=== PATIENT | female | born 1940 | race Caucasian/White ===

== ENCOUNTER → 2023-04-04 11:47 | Outpatient (REF) | payer MEDICARE, BC, SELFPAY ==
[2023-04-04 12:19] LABS: % Basophils 0.7 % (0-2); % Eosinophils 2.1 % (0-6); % Immature Granulocytes 0.1 % (0-0.5); % Lymphocytes 22.6 % (20.5-51.1); % Monocytes 9.8 % (1.7-9.3); % Neutrophils 64.7 % (42.2-75.2); Absolute Basophils 0.1 10^3/uL (0-0.2); Absolute Eosinophils 0.1 10^3/uL (0-0.7); Absolute Lymphocytes 1.5 10^3/uL (1.2-3.4); Absolute Monocytes 0.7 10^3/uL (0.1-0.6); Absolute Neutrophils 4.4 10^3/uL (1.4-6.5); Hematocrit 38.1 % (37.0-47.0); Hemoglobin 11.5 g/dL (12.0-16.0); Mean Corp Hgb Conc. 30.2 g/dL (33.0-37.0); Mean Corpuscular Hgb 25.7 pg (27.0-31.0); Mean Corpuscular Volume 85.2 fL (81.0-99.0); Mean Platelet Volume 11.9 fL (7.4-10.4); Nucleated Red Blood Cells % 0 %; Platelet Count 255 10^3/uL (130-400); Red Blood Cell Count 4.47 10^6/uL (4.20-5.40); Red Cell Dist. Width 18.6 % (11.5-14.5); White Blood Cell Count 6.8 10^3/uL (4.8-10.8)
[2023-04-04 12:30] LABS: ALT (SGPT) 18 U/L (0-35); AST (SGOT) 28 U/L (14-36); Alkaline Phosphatase 75 U/L (38-126); Blood Urea Nitrogen 12 mg/dl (7-17); Calcium 8.5 mg/dl (8.4-10.2); Carbon Dioxide 30 mmol/L (22-30); Chloride 100 mmol/L (98-107); Glucose 87 mg/dl (70-99); HDL Cholesterol 42 mg/dl; LDL Cholesterol, Calculated 48 mg/dl; Magnesium 2.2 mg/dl (1.6-2.3); Potassium 3.9 mmol/L (3.5-5.1); Sodium 137 mmol/L (135-145); Total Bilirubin 0.6 mg/dl (0.2-1.3); Total Cholesterol 104 mg/dl (50-199); Total Protein 5.9 g/dl (6.3-8.2); Triglyceride 74 mg/dl (10-149); Very Low Density Lipoprotein 14 mg/dl (0-30); eGFR > 60.00
[2023-04-04 12:43] LABS: Vitamin D, 25-OH*** 42.2 ng/mL (30-80)
[2023-04-04 12:57] LABS: TSH 6.84 uIU/ml (0.47-4.68)
[2023-04-04 14:17] LABS: Glycohemoglobin (HgbA1c) 6.5 % (4.0-5.6)
== END ==
LOC: OLABN 11:47
PROVIDERS: ATTENDING PHYSICIAN Student in an Organized Health Care Education/Training Program
DX: F32.9 Major depressive disorder, single episode, unspecified (principal); J44.9 Chronic obstructive pulmonary disease, unspecified; I50.32 Chronic diastolic (congestive) heart failure; E03.9 Hypothyroidism, unspecified; E78.5 Hyperlipidemia, unspecified; E11.10 Type 2 diabetes mellitus with ketoacidosis without coma; R73.09 Other abnormal glucose; E55.9 Vitamin D deficiency, unspecified
CPT/HCPCS: 36415; 80053; 80061; 82306; 83036; 83735; 84443; 85025

== ENCOUNTER 2023-05-05 15:37 | Inpatient (IN) | payer MEDICARE, BC, SELFPAY ==
[2023-05-05] VITALS (9 sets, daily range): BP systolic 95–129; BP diastolic 63–107; PULSE 94–96; BMI 23.6
[2023-05-05 12:14] LABS: % Basophils 0.7 % (0-2); % Eosinophils 0.5 % (0-6); % Immature Granulocytes 0.4 % (0-0.5); % Lymphocytes 7.9 % (20.5-51.1); % Monocytes 12.5 % (1.7-9.3); Absolute Basophils 0.1 10^3/uL (0-0.2); Absolute Lymphocytes 0.7 10^3/uL (1.2-3.4); Absolute Monocytes 1.1 10^3/uL (0.1-0.6); Absolute Neutrophils 6.6 10^3/uL (1.4-6.5); Hematocrit 39.1 % (37.0-47.0); Hemoglobin 12.3 g/dL (12.0-16.0); Mean Corp Hgb Conc. 31.5 g/dL (33.0-37.0); Mean Corpuscular Hgb 25.6 pg (27.0-31.0); Mean Corpuscular Volume 81.5 fL (81.0-99.0); Mean Platelet Volume 11.3 fL (7.4-10.4); Nucleated Red Blood Cells % 0 %; Platelet Count 229 10^3/uL (130-400); Red Cell Dist. Width 17.5 % (11.5-14.5); White Blood Cell Count 8.5 10^3/uL (4.8-10.8)
[2023-05-05 12:25] LABS: INR 1.68; PT 19.9 Sec (11.4-14.6)
[2023-05-05 12:26] LABS: COVID-19 Antigen Negative (Negative)
[2023-05-05 12:27] LABS: ALT (SGPT) 13 U/L (0-35); AST (SGOT) 19 U/L (14-36); Albumin 3.6 g/dl (3.5-5.0); Alkaline Phosphatase 66 U/L (38-126); Blood Urea Nitrogen 12 mg/dl (7-17); Calcium 8.9 mg/dl (8.4-10.2); Carbon Dioxide 28 mmol/L (22-30); Chloride 99 mmol/L (98-107); Estimated Creatinine Clearance 57 ml/min; Glucose 106 mg/dl (70-99); Potassium 3.7 mmol/L (3.5-5.1); Sodium 133 mmol/L (135-145); Total Bilirubin 0.9 mg/dl (0.2-1.3); Total Protein 6.4 g/dl (6.3-8.2); eGFR > 60.00
[2023-05-05 12:34] LABS: NT-proBNP 5580 pg/ml
--- NOTE | 2023-05-05 14:21 | ED.GENMED ---
History of Present Illness
General
Chief Complaint: Breathing Problem
Source: patient, records and ambulance crew
Exam Limitations: none
Time Seen by Provider: 05/05/23 12:36
Nursing documentation reviewed up to this point in time: agreed with
Travel History
Have you had any contact with someone who has COVID-19?: No
Do you have any symptoms of coronavirus? Fever > 100 degrees, chills, cough, shortness of breath, sore throat, loss of taste or smell, muscle aches, or headache?: No
History of Present Illness
History of Present Illness:
83-year-old female with a past medical history of COPD, chronic respiratory failure on 2 L oxygen at nighttime only, CHF, hypertension, atrial fibrillation who presents to the emergency department from [facility] for evaluation of shortness of
breath. Patient reports that she has had gradually worsening shortness of breath over the past few days. Last night she says she woke up in the middle of the night very winded and today particularly the afternoon shortness of breath has been
significantly worse. She says she has had increasing orthopnea. She says she has had a nagging cough over the past 24 hours. Denies chest pain. She has not noticed any significant swelling in her legs. She denies any fevers or chills. She
denies any GI issues. She says she has been compliant with all meds including her Lasix (takes 40 mg daily). She normally sees Dr. Cody for cardiology. Per EMS on their arrival she was hypoxic on room air requiring 4 L nasal cannula.
Past History
Past History
ED Past Medical History: Asthma, COPD, GERD, HTN, Hypercholesterolemia, NIDDM, Other (osteoarthritis, migraines, Sjogren's, peripheral polyneuropathy, chronic pain, Diverticulitis, IBS, elevated LFT's, Hyperthyriodism) and Other ( peripheral
neuropathy, IBS, recurrent SBO, status post MVP, PNA)
ED Past Surgical History: Appendectomy, Bowel resection (Colon resection), Gynecological (Total hysterectomy), Orthopedic (b/l TKR, left shoulder, back stimulator, Fusion of back, ), Tonsilectomy, Urological (Bladder sling) and Other (recurrent
bowel obstructions after bowel resection for multiple diverticula); Negative Cholecystectomy
Social History
Tobacco: Non-smoker
Alcohol: None
Drug: None
Personal:
Living: alone
Employment: Retired
Family History
Family History: Diabetes
Review of Systems
Review of Systems
All Other Systems: ROS reviewed and negative except as documented in HPI and ROS
Constitutional: Reports fatigue; Denies fever or chills
EENT: Denies sore throat or runny nose
Respiratory: Reports cough and trouble breathing
Cardiac: Reports other (Orthopnea, PND); Denies chest pain or palpitations
ABD/GI: Denies abdominal pain, nausea or vomiting
: Denies flank pain
Musculoskeletal: Denies edema, neck pain or back pain
Neurological: Denies headache, weakness or numbness
Phy Exam
Physical Exam
Physical Exam:
General: Awake, alert, oriented x3; no acute distress
Head: Normocephalic, atraumatic
Eyes: Conjunctiva normal, sclera anicteric
Throat: Airway intact, handling secretions
Neck: Trachea midline, slight JVD noted
Lungs: Patient is hypoxic currently on 4 L nasal cannula saturating 95%; mild tachypnea with a respiratory of 20-22; she has very faint rales at the lung bases bilaterally no significant wheezing; occasional coughing
Heart: Regular rate and rhythm, no murmurs, gallops, or rubs appreciated
Abd: Soft, non distended, nontender
Neuro: No gross deficits
Extremities: Trace edema around the ankles bilaterally; extremities warm and well-perfused
Scores
Heart Failure Risk
Heart Failure Risk Score: Yes
History of Stroke or TIA: No
History of intubation for respiratory distress: No
Heart rate on ED arrival >/= 110: No
SaO2 <90% on arrival on room air: Yes
HR >/=110 during 3min walk test (or too ill to perform test): Yes
ECG has acute ischemic changes: No
Urea >/=12mmol/L (BUN 33.6mg/dL): No
Serum CO2>/=35mmol/L: No
Troponin I or T elevated to [place] Level (0.4mg/dL): No
NT-proBNP >/=5,000ng/L (5,000pg/ml): Yes
HF Risk Score: 4
Admission Status: HIGH RISK 26.1% Consider SNF treatment or admission to hospital
Heart Score for Chest Pain Patients
STEMI patient?: Not applicable
Withdrawal Assessment of Alcohol
Withdrawal Assessment Completed?: Not applicable
Course
Orders/Labs/Results
Orders:
Orders
05/05/23 11:52
Electrocardiogram (*1) Urgent
Reason for Study: Chest Pain
EKG- Treatment ONCE
Pulse Ox/spot Check [RESP] Urgent
Quantity: 1
Special Instructions: ON ROOM AIR
05/05/23 12:06
COVID-19 Antigen Urgent
Source: Nasal Swab
Complete Blood Count/With Diff Urgent
Influenza A+B Rapid Molecular Urgent
SCARLETT Source: Nasal Swab
Specimen Description:
05/05/23 12:07
Comprehensive Metabolic Panel Urgent
NT-proBNP Urgent
Prothrombin Time Urgent
05/05/23 12:38
CR Chest - 2 Views Urgent
Comment:
Reason For Exam: sob
05/05/23 14:10
Furosemide [Lasix] 80 mg IV NOW STA
Abnormal Lab Results
05/05/23 05/05/23
12:06 12:07
MCH 25.6 L pg
(27.0-31.0)
MCHC 31.5 L g/dL
(33.0-37.0)
RDW 17.5 H %
(11.5-14.5)
MPV 11.3 H fL
(7.4-10.4)
Absolute Neuts (auto) 6.6 H 10^3/uL
(1.4-6.5)
Absolute Lymphs (auto) 0.7 L 10^3/uL
(1.2-3.4)
Absolute Monos (auto) 1.1 H 10^3/uL
(0.1-0.6)
Neutrophils % 78.0 H %
(42.2-75.2)
Lymphocytes % 7.9 L %
(20.5-51.1)
Monocytes % 12.5 H %
(1.7-9.3)
PT 19.9 H Sec
(11.4-14.6)
Sodium 133 L mmol/L
(135-145)
Creatinine 0.5 L mg/dL
(0.6-1.0)
Glucose 106 H mg/dl
(70-99)
05/05/23 12:06
05/05/23 12:07
Vital Signs
Initial and Last Documented VS:
Initial Vital Signs
Temp Pulse Resp BP Pulse Ox
36.7 C 103 20 117/73 90
05/05/23 11:48 05/05/23 11:48 05/05/23 11:48 05/05/23 11:48 05/05/23 11:48
Last Documented Vital Signs
Temp Pulse Resp BP Pulse Ox
36.7 C 103 20 117/73 90
05/05/23 11:48 05/05/23 11:48 05/05/23 11:48 05/05/23 11:48 05/05/23 11:48
MDM/Problems Addressed
Differential Diagnosis Includes:
COPD exacerbation, CHF exacerbation, pneumonia, anemia
MDM/Problems Addressed:
83-year-old female presents for evaluation of worsening shortness of breath and cough, increased oxygen requirement. Hypoxic requiring 3 to 4 L nasal cannula here. She was tachycardic in triage heart rate in the 80s on my assessment. Blood
pressure normal. Mild tachypnea. Afebrile. Faint rales at the lung bases and slight JVD. Only trace edema in the legs. Plan to place an IV send labs including a CBC and a CMP, BNP. Will swab for COVID and flu. Will check a chest x-ray and
EKG. Monitor closely reassess after the above.
Labs reviewed: CBC unremarkable, CMP no clinically significant abnormalities. BNP markedly elevated at 5500. EKG shows sinus rhythm with PVCs. Chest x-ray shows mild CHF. Suspect likely CHF exacerbation. Will dose with Lasix. Will plan for
admission for continued treatment. Discussed with hospitalist for admission.
Chronic conditions affecting care:
CHF, COPD
Acute Exacerbation and/or Progression of Chronic Illness:
Acute CHF exacerbation
*Radiology
Radiology exam reviewed: preliminary read by ED provider and radiology read reviewed
*Pulse Oximetry
Patient hypoxic: yes
*EKG
Interpreted by ED Provider?: Yes
Heart Rate: 98
Rate: normal
Rhythm: sinus and PVC's
Winner: normal axis
Interval: normal interval
QRS Pattern: normal QRS
Ischemia: non-specific ST changes
*Critical Care Note
Total Time (30-74mins, 75-104mins- exclusive of procedures): Not Applicable
Data Reviewed
Review of Other/Old Records Reveals: Labs, Records and Discharge Summary
Source: patient and records
Patient Management
Discussion with other providers: Hospitalist (Discussed with hospitalist)
Escalation/DeEscalation of care consider admission/obs:
Admission indicated
ED Attending Note
-
Portions of this chart may have been created with voice recognition software.� Occasional wrong word or��sound alike� substitutions may have occurred due to the inherent limitations of voice recognition software.
Discharge Plan
Departure
Patient Disposition: Admit
Date of Disposition: 05/05/23
Time of Disposition: 14:20
Admit to doctor: Fernie
Presentation/result/management discussed w/ accepting MD/DO: Hospitalist
Patient with high blood pressure during this ER visit?: No
Discharge Problem:
Acute exacerbation of CHF (congestive heart failure), Acute on chronic hypoxic respiratory failure
Prescriptions:
No Action
glipizide 5 MG tablet extended release 24hr
5 mg PO BID
Jardiance 25 MG tablet
25 mg PO DAILY
sertraline 50 mg Tablet
50 mg PO DAILY
oxybutynin chloride 10 mg Tablet Extended Release 24hr
10 mg PO HS
omeprazole 20 mg Capsule,Delayed Release(Dr/Ec)
20 mg PO HS
rosuvastatin 10 mg Tablet
10 mg PO HS
budesonide-formoterol [Symbicort] 160-4.5 mcg/actuation HFA aerosol inhaler
2 puff INHALATION R BID
Eliquis 5 mg tablet
5 mg PO BID
doxepin 25 mg capsule
25 - 50 mg PO HS
gabapentin 800 mg tablet
800 mg PO BID
dicyclomine 10 mg capsule
10 mg PO TID PRN (Reason: bowel spasms)
furosemide 40 mg Tablet
40 mg PO DAILY 30 Days Qty: 30 0RF
carvedilol 3.125 mg tablet
3.125 mg PO BID
oxycodone 15 mg tablet
15 mg PO Q4H PRN (Reason: MODERATE PAIN)
Patient Comments:
02/28/2023: [facility]/23[facility]
albuterol sulfate 90 mcg/actuation HFA aerosol inhaler
2 puff INHALATION R Q4 PRN (Reason: SOB/WHEEZING)
Referrals:
Marcie Kimble DO [Family Provider] -
Interventions
Interventions:
*Risk Screen - Suicide Last Done: 05/05/23 11:48
*General Assessment Last Done: 05/05/23 11:48
*Neglect/Abuse Screening Last Done: 05/05/23 11:48
Discharge Date and Time
Print Language: SOMALI
--- NOTE | 2023-05-05 14:53 | HPS.HSE ---
Family Physician
-
Family Physician: Marcie Kimble
Chief Complaint
-
sob
cough
History of Present Illness
83-year-old female with a past medical history of COPD, chronic respiratory failure on 2 L oxygen, CHF, hypertension, atrial fibrillation who presents to the emergency department from [facility] for evaluation of shortness of breath. Patient
stated, she was thirsty and was drinking a lot of fluids. Started having cough 3 days ago. She gained 4 pounds in 4 days. Denies any significant lower extremities edema. patient noted short of breath which is worse with exertion since yesterday.
She complained of orthopnea. Stated some chest tightness. Patient denied any headache, dizziness, syncopal episode patient denied fever, chills. Patient denies abdominal pain, nausea, vomiting, diarrhea. Patient denies dysuria,hematuria.
Patient was noted hypoxic at [facility] patient required 4 L of oxygen. Patient received a dose of Lasix in the ER. Admitting for further management
Medical History
Past Medical History
Past Medical History: Reports Other
Additional Past Medical History:
Coronary artery disease
Hypertension
congestive heart failure
Type 2 diabetes
Sjogren syndrome
Interstitial lung disease
Asthma
COPD
GERD
Hyperlipidemia
Hypothyroidism
Past Surgical History: Reports Other
Additional Past Surgical History:
Left knee replacement
Right knee replacement
Left shoulder replacement
Spinal cord stimulator
Appendectomy
Hysterectomy
Back fusion
Social History
Tobacco: Former Smoker
Alcohol: None
Drug: None
Living: Assisted Living
Family History
Family History: Not pertinent
Allergies / Home Medications
Allergies reflects when Allergies were last updated in [facility].
Home Medications with original date entered in [facility]
Allergy/Medication List:
Allergies
Allergy/AdvReac Type Severity Reaction Status Date / Time
cat dander Allergy Unknown Verified 05/05/23 11:47
cedar leaf Allergy nasal Verified 05/05/23 11:47
congestion
to leaves
grass pollen Allergy nasal Verified 05/05/23 11:47
congestion
to grass
mold Allergy nasal Verified 05/05/23 11:47
congestion
prednisone Allergy Unknown Verified 05/05/23 11:47
Home Medications
glipizide 5 mg tablet, extended release 24 hr 5 mg PO BID Diabetes 01/21/21
sertraline 50 mg tablet 50 mg PO DAILY Depression 08/07/21
rosuvastatin 10 mg tablet 10 mg PO HS High cholesterol 01/18/22
budesonide-formoterol HFA 160 mcg-4.5 mcg/actuation aerosol inhaler (Symbicort) 2 puff inhalation R BID Lung/breathing issues 01/19/22
apixaban 5 mg tablet (Eliquis) 5 mg PO BID Blood Clot Prevention/Tx 07/13/22
dicyclomine 10 mg capsule 10 mg PO TIDPRN PRN bowel spasms 11/23/22
gabapentin 800 mg tablet 800 mg PO TID Neurological Condition 11/23/22
furosemide 40 mg tablet 40 mg PO DAILY Fluid retention/Swelling 30 days #30 tabs 12/04/22
carvedilol 3.125 mg tablet 6.25 mg PO DAILY Blood Pressure 02/28/23
oxycodone 15 mg tablet 15 mg PO Q6HPRN PRN MODERATE PAIN 02/28/23
Saccharomyces boulardii 250 mg capsule (Florastor) 250 mg PO DAILY 05/05/23
acetaminophen 325 mg tablet (Tylenol) 650 mg PO Q4HPRN PRN fever 05/05/23
acetaminophen 500 mg tablet (Tylenol Extra Strength) 500 mg PO TIDPRN PRN mild pain 05/05/23
albuterol sulfate 2.5 mg/3 mL (0.083 %) solution for nebulization 2.5 mg inhalation R Q6HPRN PRN sob 05/05/23
bisacodyl 10 mg rectal suppository (Dulcolax (bisacodyl)) 10 mg PA [id number] PRN if no bm aftr mom 05/05/23
cetirizine 10 mg tablet (Zyrtec) 10 mg PO DAILY PRN allergies 05/05/23
cholecalciferol (vitamin D3) 25 mcg (1,000 unit) tablet (Vitamin D3) 25 mcg PO DAILY 05/05/23
dexamethasone 2 mg tablet 2 mg PO DAILY 05/05/23
diphenhydramine-zinc acetate 2 %-0.1 % topical cream 1 applic topical BIDPRN PRN pruritus 05/05/23
doxepin 25 mg capsule 25 mg PO HS 05/05/23
levothyroxine 50 mcg tablet (Synthroid) 50 mcg PO DAILY 05/05/23
lidocaine 4 % topical patch 1 patch topical DAILY PRN area of pain 05/05/23
loperamide 1 mg/7.5 mL oral liquid 2 mg PO DAILYPRN PRN dairrhea 05/05/23
magnesium hydroxide 400 mg/5 mL oral suspension (Milk of Magnesia) 2,400 mg PO HSPRN PRN constipation 05/05/23
morphine 15 mg tablet,extended release 15 mg PO Q12H 05/05/23
Review of Systems
-
Constitutional: Reports Weight Gain
EENT: Reports No Symptoms
Respiratory: Reports Cough and Trouble Breathing
Cardiac: Reports No Symptoms
Abdomen/GI: Reports No Symptoms
: Reports No Symptoms
Musculoskeletal: Reports No Symptoms
Skin: Reports No Symptoms
Neurological: Reports No Symptoms
Endocrine: Reports No Symptoms
Hematologic/Lymphatic: Reports No Symptoms
Psych: Reports No Symptoms
Physical Exam
Vital Signs
Vital Signs
Temp Pulse Resp BP Pulse Ox
98.1 F 99 16 95/73 90
05/05/23 11:48 05/05/23 14:05 05/05/23 14:05 05/05/23 14:04 05/05/23 11:48
Physical Exam
General: Well Developed, Well Nourished and No Apparent Distress
HEENT: NormoCephalic, Moist mucous membranes and Atraumatic
Respiratory: Rales and Crackles
Cardiac: S1/S2 and Regular Rhythm; No Murmur or Rub
GI: Soft, Non Tender, Non Distended and Normal Bowel Sounds; No Organomegaly
Rectal: Deferred by Provider
Musculoskeletal: No Clubbing, No Cyanosis and No Edema
Skin: No Rash
Neuro: AO x 3 and Nonfocal/grossly intact
Psych: Calm
Laboratory Results
-
05/05/23 12:06
05/05/23 12:07
Laboratory Results
PT 19.9 Sec (11.4-14.6) H 05/05/23 12:07
INR 1.68 05/05/23 12:07
Total Bilirubin 0.9 mg/dl (0.2-1.3) 05/05/23 12:07
AST 19 U/L (14-36) 05/05/23 12:07
ALT 13 U/L (0-35) 05/05/23 12:07
Alkaline Phosphatase 66 U/L (38-126) 05/05/23 12:07
Data Reviewed
-
Diagnostic Radiology: Report Reviewed by me
Lab Data: Labs Reviewed by me
Impression/Plan
-
# Acute on chronic hypoxic respiratory failure likely from acute on chronic CHF exacerbation
-Patient requiring 4 L of oxygen
-Patient uses 2 L at home
-BNP 5580
-Chest x-ray shows Cardiomegaly. Increased pulmonary vascularity suggesting CHF or acute cardiogenic pulmonary edema.
-IV Lasix 40 twice a day
-Strict FAHAD
-Daily weight
-Wean oxygen as tolerated
-Fluid restriction
-Cardiology consulted
-COVID and flu negative
-ECHO /2023) with EF of 20.25%
# Hyponatremia likely hypervolemic
-Fluid restriction
-Diuretics
-BMP in a.m.
# History of COPD/asthma
-Not in acute exacerbation
-Albuterol as needed for short of breath and wheezing
-Symbicort continued
-Dexamethasone continued
# Hypothyroidism
-Levothyroxine
#Paroxysmal AF
-EKG with sinus rhythm with PVCs
- cont. Eliquis
-� on carvedilol in setting of cardiomyopathy.
#Essential Hypertension
- Coreg
#Hyperlipidemia
- cont. Crestor
#DMT2
- cont Glipizide and Jardiance
- add ISS low
#Diabetic Neuropathy
- cont. gabapentin
#HX ILDz with chronic hypoxic respiratory insufficiency at bedtime
- cont.� Symbicort
- Home O2 uses 2 L of oxygen at bedtime
#Anxiety/Depression/Insomnia
- cont Zoloft
- cont� doxepin
#GERD
-Continue Protonix
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
-Prior� DARRYL -without any significant stenosis per prior record
-Continue oxy and morphine
#DVT prophylaxis
-eliquis
#CODE status
-DNR
[2023-05-05] MEDS: LASIX 80 MG IV (14:59)
[2023-05-05 15:40] LABS: Troponin I 0.033 ng/ml
--- NOTE | 2023-05-05 15:49 | CON.CAR ---
Addendum entered and electronically signed by Martin Palma MD 05/05/23 17:08:
I saw and examined the patient.
The Hourly Team Members's note was reviewed and I agree with the note.
Comment:
GEN: No distress, awake, Ox3
HEENT: supple, anicteric, mmm
LUNGS: dec Bs at bases
CV: Reg, S1/S2, 02/12 syst LSB, S3+
ABD: soft, BS+, NT/ND
EXT: trace edema
NEURO: Gross non-focal
SKIN: Leg dressing intact
Plan:
As chronic heart failure with reduced ejection fraction with EF of 20 to 25%, paroxysmal atrial fibrillation, interstitial lung disease who presents with progressive acute on chronic heart failure. She is noticed several days of fatigue, shortness
of breath, dyspnea, cough, weight gain, and hypoxemia. She admits to being noncompliant with a low fluid diet. proBNP is 5500 and chest x-ray is abnormal.
Start Lasix 40 mg IV twice daily. Continue carvedilol. She has not tolerated Entresto, Aldactone, or other afterload agents because of hypotension. Will consider adding low-dose lisinopril in a.m. and see if she tolerates. Will resume Jardiance.
She remains in sinus rhythm. Continue Coreg and Eliquis.
CHF education. She is DNR which is appropriate.
Previous cardiac catheterization has revealed nonobstructive CAD.
Original Note:
Consultation
Consultation Request
Date/Time Consultation Performed: 05/05/23
Requesting Provider: Eden TRACEY
Performing Provider: Elmira Brantley PA-C for Dr. Palma
Reason for Consultation: CHF
Medical History
-
Chief Complaint: chest tightness, SOB
History of Present Illness:
Patient is an 83-year-old female with past medical history of chronic heart failure with reduced EF, EF 20 to 25% by echo 02/2023, paroxysmal atrial fibrillation and atrial tachycardia, history of PE and DVT, interstitial lung disease and asthma who
moved from home to [facility] approximately 1 month ago on palliative care. She states that yesterday she began with chest tightness and shortness of breath which worsened throughout the evening and this morning. She denies
radiation of pain from the chest, and denies nausea/vomiting or diaphoresis. She states she was on 2 L of supplemental oxygen this morning, however felt she needed 3 L. She reports she could not get help with this for some time. She states the
pain and shortness of breath lasted approximately 1-1/2 hours before being relieved with an increase in oxygen (apparently was hypoxic with improvement in increase to 4L NC). She reports orthopnea, lower extremity edema, dry cough, and 4 pound
weight gain over the last several days. She states she has been drinking a lot over the last couple days as she has had significant thirst. proBNP 5500. Chest x-ray with evidence of pulmonary edema suggestive of congestive heart failure
exacerbation. Cardiology consulted for evaluation
PMH:
Chronic HFrEF
CM EF 20-25% by echo 02/2023
Paroxysmal atrial fibrillation
Paroxysmal atrial tachycardia
Previously managed with Tikosyn, but patient stopped taking on her own in past for unclear reasons
Chronic Eliquis 5 mg BID OAC
History of PE and DVT 07/31/21
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
mild
h/o brief NSVT by Bardy monitor 06/2022
Interstitial lung disease/asthma
Chronic supplemental O2
Sjogren's syndrome
Hypertension
Hyperlipidemia
Type 2 diabetes
Hypothyroidism
History of falls
Chronic back pain/chronic narcotic dependence
History of bowel resection for diverticulitis
Past Medical History
Past Medical History: Other (in HPI)
Social History
Tobacco: Former Smoker
Alcohol: None
Living: Residential
Employment: Retired
Allergies / Home Medications
Allergy/AdvReac Type Severity Reaction Status Date / Time
cat dander Allergy Unknown Verified 05/05/23 11:47
cedar leaf Allergy nasal Verified 05/05/23 11:47
congestion
to leaves
grass pollen Allergy nasal Verified 05/05/23 11:47
congestion
to grass
mold Allergy nasal Verified 05/05/23 11:47
congestion
prednisone Allergy Unknown Verified 05/05/23 11:47
�Medication �Instructions �Recorded �Confirmed �Type
glipizide 5 mg tablet, extended 5 mg PO BID Diabetes 01/21/21 05/05/23 History
release 24 hr
sertraline 50 mg tablet 50 mg PO DAILY Depression 08/07/21 05/05/23 History
rosuvastatin 10 mg tablet 10 mg PO HS High cholesterol 01/18/22 05/05/23 History
budesonide-formoterol HFA 160 2 puff inhalation R BID 01/19/22 05/05/23 History
mcg-4.5 mcg/actuation aerosol Lung/breathing issues
inhaler (Symbicort)
apixaban 5 mg tablet (Eliquis) 5 mg PO BID Blood Clot 07/13/22 05/05/23 History
Prevention/Tx
dicyclomine 10 mg capsule 10 mg PO TIDPRN PRN bowel spasms 11/23/22 05/05/23 History
gabapentin 800 mg tablet 800 mg PO TID Neurological 11/23/22 05/05/23 History
Condition
furosemide 40 mg tablet 40 mg PO DAILY Fluid 12/04/22 05/05/23 Rx
retention/Swelling 30 days #30 tabs
carvedilol 3.125 mg tablet 6.25 mg PO DAILY Blood Pressure 02/28/23 05/05/23 History
oxycodone 15 mg tablet 15 mg PO Q6HPRN PRN MODERATE PAIN 02/28/23 05/05/23 History
Saccharomyces boulardii 250 mg 250 mg PO DAILY 05/05/23 05/05/23 History
capsule (Florastor)
acetaminophen 325 mg tablet 650 mg PO Q4HPRN PRN fever 05/05/23 05/05/23 History
(Tylenol)
acetaminophen 500 mg tablet 500 mg PO TIDPRN PRN mild pain 05/05/23 05/05/23 History
(Tylenol Extra Strength)
albuterol sulfate 2.5 mg/3 mL 2.5 mg inhalation R Q6HPRN PRN sob 05/05/23 05/05/23 History
(0.083 %) solution for nebulization
bisacodyl 10 mg rectal suppository 10 mg OR [id number] PRN if no bm aftr 05/05/23 05/05/23 History
(Dulcolax (bisacodyl)) mom
cetirizine 10 mg tablet (Zyrtec) 10 mg PO DAILY PRN allergies 05/05/23 05/05/23 History
cholecalciferol (vitamin D3) 25 25 mcg PO DAILY 05/05/23 05/05/23 History
mcg (1,000 unit) tablet (Vitamin
D3)
dexamethasone 2 mg tablet 2 mg PO DAILY 05/05/23 05/05/23 History
diphenhydramine-zinc acetate 2 1 applic topical BIDPRN PRN 05/05/23 05/05/23 History
%-0.1 % topical cream pruritus
doxepin 25 mg capsule 25 mg PO HS 05/05/23 05/05/23 History
levothyroxine 50 mcg tablet 50 mcg PO DAILY 05/05/23 05/05/23 History
(Synthroid)
lidocaine 4 % topical patch 1 patch topical DAILY PRN area of 05/05/23 05/05/23 History
pain
loperamide 1 mg/7.5 mL oral liquid 2 mg PO DAILYPRN PRN dairrhea 05/05/23 05/05/23 History
magnesium hydroxide 400 mg/5 mL 2,400 mg PO HSPRN PRN constipation 05/05/23 05/05/23 History
oral suspension (Milk of Magnesia)
morphine 15 mg tablet,extended 15 mg PO Q12H 05/05/23 05/05/23 History
release
Review of Systems
-
History Source: Patient
All other systems: Negative unless noted
Physical Exam
Vital Signs
Temp Pulse Resp BP Pulse Ox
98.1 F 88 23 96/73 90
05/05/23 11:48 05/05/23 15:00 05/05/23 15:00 05/05/23 15:00 05/05/23 11:48
Lab Results
05/05/23 12:06
05/05/23 12:07
Troponin I 0.033 ng/ml 05/05/23 14:58
Mwi-G-Secghqlgftg Pept 5580 pg/ml 05/05/23 12:07
Physical Exam
General: No Apparent Distress, Comfortable and Other (on supp O2, chronically ill appearing)
HEENT: Normocephalic, Anicteric and Moist Mucous Membranes
Respiratory: Crackles and Non Labored Respirations
Cardiac: S1/S2, Regular Rhythm and Murmur
GI: Soft, Non Tender, Non Distended and Normal Bowel Sounds
Musculoskeletal: No Clubbing, No Cyanosis and Edema (1+ of B/L LE)
Skin: Warm and Dry
Neuro: AO x 3
Impression / Plan
-
Primary Secondary History Teacher: Dr. Cody
Assessment:
Presentation with chest tightness, SOB
Acute on chronic HFrEF
CM EF 20-25% by echo 02/2023
Paroxysmal atrial fibrillation
Paroxysmal atrial tachycardia
Previously managed with Tikosyn, but patient stopped taking on her own in past for unclear reasons
Chronic Eliquis 5 mg BID OAC
History of PE and DVT 07/31/21
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
mild
h/o brief NSVT by Bardy monitor 06/2022
Interstitial lung disease/asthma
Chronic supplemental O2
Sjogren's syndrome
Hypertension
Hyperlipidemia
Type 2 diabetes
Hypothyroidism
History of falls
Chronic back pain/chronic narcotic dependence
History of bowel resection for diverticulitis
Hyponatremia, mild
ECHO 06/25/22: TDS, EF 55%, mild to moderate concentric LVH prominent subaortic septum, stage II diastolic dysfunction, dilated left atrium, mitral sclerosis with dense posterior MAC, mild to moderate MR, mild with peak/mean gradients 21/12 mmHg,
mild AR, mild TR, PAP 35 to 40 mmHg
MUSA 07/15/22: EF 45-50%, mild conc LVH, mod MR, mild MS, mild with mild to mod AR
Echo 12/01/22: EF 20-25% with severe global hypokinesis, stage II diastolic dysfunction, mod MR, mild and mild to mod AR, mild TR with PAP 35-40 mmHg
ECHO 03/01/2023: EF 20 to 25%, global hypokinesis
Plan:
-Patient presents for evaluation of chest tightness and shortness of breath over the last 48 hours. She reports recent increase in fluid intake over the last several days. proBNP 5580. CXR with evidence of cardiomegaly and increased pulmonary
vascularity.
-was given IV lasix 80mg x1 in ER. on po lasix 40mg daily as OP. agree with IV lasix 40mg BID. Cr stable at 0.5
-wean supp O2 as able. she is chronically on 2L supp O2 at [facility], currently requiring 4L
-recent echo with results as above, will not repeat at this time. EF 20-25% felt to be ischemia or tachyarrhythmia related. she had cath in 2019 with nonobstructive CAD and previously was offered repeat cath and she refused. trop 0.033.
-in SR with PVCs upon review of EKG without acute ST abnormalities noted. follow on tele
-continue eliquis 5mg BID
-continue coreg 6.25mg BID. entresto was cost prohibitive in past. currently hypotension precludes addition of scar/arb/arni/aldactone, will add this admission as able.
-she had been on jardiance in past for both DM and CHF, however not on current med list. will resume if no contraindication
-she is DNR. she is on palliative care.
Data Reviewed
-
EKG: Tracing Personally Visualized and interpreted
Radiology: Report Reviewed by me
Medical Tests (Nuc Med, Echo etc): Report Reviewed by me
Labs: Labs Reviewed by me
Old Records: Reviewed
--- NOTE | 2023-05-05 17:16 | ED TECH ---
Patient requesting to speak with her daughter. The daughter's phone number was provided by accessing patient's chart. Assistance in dialing was provided by this PCT.
[2023-05-05] MEDS: SYMBICORT 160/4.5 MCG INHALER 2 PUFF INH (19:22)
[2023-05-05 19:54] LABS: Glucose - Point of Care 80 mg/dl (70-99)
--- NOTE | 2023-05-05 21:07 | W.PN.UPDATE ---
Update Note
Progress Note Update
This note serves as an addendum to the H&P by Eden TRACEY on May 05, 2023.
83-year-old female with a past medical history of COPD, chronic respiratory failure on 2 L oxygen, CHF, hypertension, atrial fibrillation who presented to the emergency department from [facility] with shortness of breath. Patient stated, she
has been quite thirsty and was drinking a lot of fluids. She reported cough and weight gain over the preceding few days. She also reported chest tightness. Patient denied any headache, dizziness, fever or chills. Patient was requiring 4 liters of
oxygen but at baseline noted to be using 2 L of oxygen.
Vital Signs noted
Physical Exam
General: Well Developed, Well Nourished and No Apparent Distress
HEENT: Normocephalic, Moist mucous membranes and Atraumatic
Respiratory: Rales and Crackles
Cardiac: S1/S2 and Regular Rhythm
GI: Soft, Non Tender, Non Distended and Normal Bowel Sounds
Musculoskeletal: No Cyanosis and No Edema
Skin: Warm. Dry.
Neuro: AAO x 3 and Nonfocal/grossly intact
Psych: Calm
Assessment/Plan
# Acute on chronic hypoxic respiratory failure likely from acute on chronic HFrEF exacerbation
#HFrEF
-Patient requiring 4 L of oxygen
-Patient uses 2 L at home
-BNP 5580
-Chest x-ray shows Cardiomegaly. Increased pulmonary vascularity suggesting CHF or acute cardiogenic pulmonary edema.
-IV Lasix 40 twice a day
-Continue carvedilol.
-Strict I's and O's
-Check daily weights
-Wean oxygen as tolerated
-Fluid restriction
-Cardiology consulted, recommendations appreciated
-COVID and flu negative
-ECHO /2023) with EF of 20-25%
-Per cardiology, patient has not tolerated Entresto, Aldactone, or other afterload agents because of hypotension.
# Hyponatremia likely hypervolemic
-Fluid restriction
-Diuretics
-BMP in a.m.
# History of COPD/asthma
-Not in acute exacerbation
-Albuterol as needed for short of breath and wheezing
-Symbicort continued
-Dexamethasone continued
# Hypothyroidism
-Levothyroxine
#Paroxysmal AF
-EKG with sinus rhythm with PVCs
- cont. Eliquis
- on carvedilol in setting of cardiomyopathy.
#Essential Hypertension
- Continue Coreg
#Hyperlipidemia
- cont. Crestor
#DMT2
- cont Glipizide and Jardiance
- add ISS low
#Diabetic Neuropathy
- cont. gabapentin
#HX ILDz with chronic hypoxic respiratory insufficiency at bedtime
- cont. Symbicort
- Home O2 uses 2 L of oxygen at bedtime
#Anxiety/Depression/Insomnia
- cont Zoloft
- cont doxepin
#GERD
-Continue Protonix
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
-Prior DARRYL -without any significant stenosis per prior record
-Continue oxy and morphine
#DVT prophylaxis
-eliquis
#CODE status
-DNR
[2023-05-05] MEDS: NEURONTIN 800 MG PO (21:28)
[2023-05-05] MEDS: CRESTOR 10 MG PO (21:28)
[2023-05-05] MEDS: SINEQUAN 25 MG PO (21:28)
[2023-05-05] MEDS: GLUCOTROL XL (EXTENDED RELEASE) 5 MG PO (21:29)
[2023-05-05] MEDS: COREG 6.25 MG PO (21:29)
[2023-05-05] MEDS: ELIQUIS 5 MG PO (21:29)
[2023-05-05] MEDS: MS CONTIN (EXTENDED RELEASE) PO (21:32)
--- NOTE | 2023-05-05 22:26 | PTCARENOTE ---
notified of increased Troponin levels of 0.040. Patient denies chest pain. VSS. Next troponin level to be drawn at 0300 05/05/23.
--- NOTE | 2023-05-05 23:19 | PTCARENOTE ---
Pt arrived to unit at 1835. Pt ambulated from stretcher to bed. Pt oriented to the room, and call dixon within reach. VSS. Patient wears brace on right lower extremity that covers the foot as well. Extremity assessed for circulation. Pt stated brace
is worn to help her right ankle. Pt refused to take off the brace for further examination. Pt denies any pain.
[2023-05-06] VITALS (7 sets, daily range): BP systolic 97–120; BP diastolic 58–78; PULSE 84; O2SAT 97; BMI 23.5
[2023-05-06 04:08] LABS: Hematocrit 39.2 % (37.0-47.0); Hemoglobin 12.1 g/dL (12.0-16.0); Mean Corp Hgb Conc. 30.9 g/dL (33.0-37.0); Mean Corpuscular Hgb 25.3 pg (27.0-31.0); Mean Platelet Volume 11.7 fL (7.4-10.4); Platelet Count 210 10^3/uL (130-400); Red Blood Cell Count 4.78 10^6/uL (4.20-5.40); Red Cell Dist. Width 17.6 % (11.5-14.5); White Blood Cell Count 6.7 10^3/uL (4.8-10.8)
[2023-05-06 04:29] LABS: Troponin I 0.032 ng/ml
[2023-05-06 04:44] LABS: ALT (SGPT) 12 U/L (0-35); AST (SGOT) 21 U/L (14-36); Albumin 3.5 g/dl (3.5-5.0); Alkaline Phosphatase 61 U/L (38-126); Blood Urea Nitrogen 18 mg/dl (7-17); Calcium 8.8 mg/dl (8.4-10.2); Carbon Dioxide 33 mmol/L (22-30); Chloride 95 mmol/L (98-107); Estimated Creatinine Clearance 57 ml/min; Glucose 55 mg/dl (70-99); HDL Cholesterol 50 mg/dl; LDL Cholesterol, Calculated 27 mg/dl; Potassium 3.1 mmol/L (3.5-5.1); Sodium 136 mmol/L (135-145); Total Bilirubin 0.9 mg/dl (0.2-1.3); Total Cholesterol 93 mg/dl (50-199); Total Protein 6.3 g/dl (6.3-8.2); Triglyceride 83 mg/dl (10-149); Very Low Density Lipoprotein 16 mg/dl (0-30); eGFR > 60.00
[2023-05-06 05:03] LABS: Glucose - Point of Care 70 mg/dl (70-99)
[2023-05-06 05:05] LABS: TSH Reflex To Free T4 0.96 uIU/ml (0.47-4.68)
[2023-05-06] MEDS: KCL 40 MEQ PO (05:18)
[2023-05-06 05:27] LABS: Glucose - Point of Care 87 mg/dl (70-99)
[2023-05-06] MEDS: SYNTHROID 50 MCG PO (06:05)
[2023-05-06 07:04] LABS: Glucose - Point of Care 92 mg/dl (70-99)
[2023-05-06] MEDS: GLUCOTROL XL (EXTENDED RELEASE) 5 MG PO (07:59)
[2023-05-06] MEDS: COREG 6.25 MG PO ×2 (07:59→20:06)
[2023-05-06] MEDS: MS CONTIN (EXTENDED RELEASE) 15 MG PO ×2 (07:59→20:06)
[2023-05-06] MEDS: ELIQUIS 5 MG PO ×2 (07:59→20:06)
[2023-05-06] MEDS: JARDIANCE 10 MG PO (07:59)
[2023-05-06] MEDS: NEURONTIN 800 MG PO ×3 (07:59→22:03)
[2023-05-06] MEDS: LASIX 40 MG IV ×2 (08:00→18:06)
[2023-05-06] MEDS: ZOLOFT 50 MG PO (08:00)
[2023-05-06] MEDS: FLORASTOR 250 MG PO (08:00)
[2023-05-06] MEDS: DECADRON 2 MG PO (08:00)
[2023-05-06 08:19] LABS: Glycohemoglobin (HgbA1c) 6.5 % (4.0-5.6)
[2023-05-06] MEDS: SYMBICORT 160/4.5 MCG INHALER 2 PUFF INH ×2 (08:22→19:57)
--- NOTE | 2023-05-06 10:08 | CM ---
Addendum entered by Ilana Rivers 05/06/23 10:38:
Patient is no longer current with [facility].
Original Note:
Patient seen bedside, initial assessment completed. Patient reports she is a LTC resident at [facility], patient reports being there 2-3 weeks. Patient reports she was previously living at home. Patient reports she has a rollator, oxygen at night,
unsure provider, and receives PT/OT services at [facility]. Previous notes indicate patient is current with [facility], TT sent to confirm patient current with [facility]. Patient reports her daughter lives nearby. Patient confirms PCP Marcie Kimble,
pharmacy not listed, will confirm pharmacy with [facility]. CM placed call to Nathan, holli at [facility], to confirm patient is LTC/ confirm pharmacy. CM will continue to follow for discharge planning needs.
Plan; return to [facility] LT, awaiting confirmation patient is on bed hold.
[2023-05-06 10:56] LABS: Glucose - Point of Care 87 mg/dl (70-99)
--- NOTE | 2023-05-06 11:09 | W.PN.CARDCBS ---
Addendum entered and electronically signed by Martin Palma MD 05/06/23 14:54:
I saw and examined the patient.
The Flatwork Assembler's note was reviewed and I agree with the note.
Comment:
GEN: No distress, awake, Ox3
HEENT: supple, anicteric, mmm
LUNGS: CTA, no wheezes/rales
CV: Reg, S1/S2, / syst LSB, S3+
ABD: soft, BS+, NT/ND
EXT: +1 edema
NEURO: Gross non-focal
SKIN: No rash
PLan:
She is diuresing. Continue Lasix 40 mg IV twice daily. Creatinine is stable.
Continue Coreg and Jardiance.
Hypotension in the past has limited adding medication. Will consider adding low-dose lisinopril if blood pressure tolerates
Replete potassium. Weaning oxygen
Original Note:
Today's Communication / Plan
-
Continue IV lasix 40mg BID, volume status improving.
Continue coreg and jardiance.
Consider addition of DANIEL/ARB as BP allows.
Impression / Plan
-
Primary Respiratory Care Assistant: Dr. Cody
Assessment:
Presentation with chest tightness, SOB
Acute on chronic HFrEF
CM EF 20-25% by echo 02/2023
Paroxysmal atrial fibrillation
Paroxysmal atrial tachycardia
Previously managed with Tikosyn, but patient stopped taking on her own in past for unclear reasons
Chronic Eliquis 5 mg BID OAC
History of PE and DVT 07/31/21
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
mild
h/o brief NSVT by Bardy monitor 06/2022
Interstitial lung disease/asthma
Chronic supplemental O2
Sjogren's syndrome
Hypertension
Hyperlipidemia
Type 2 diabetes
Hypothyroidism
History of falls
Chronic back pain/chronic narcotic dependence
History of bowel resection for diverticulitis
Hyponatremia, mild
ECHO 06/25/22: TDS, EF 55%, mild to moderate concentric LVH prominent subaortic septum, stage II diastolic dysfunction, dilated left atrium, mitral sclerosis with dense posterior MAC, mild to moderate MR, mild with peak/mean gradients 21/12 mmHg,
mild AR, mild TR, PAP 35 to 40 mmHg
MUSA 07/15/22: EF 45-50%, mild conc LVH, mod MR, mild MS, mild with mild to mod AR
Echo 12/01/22: EF 20-25% with severe global hypokinesis, stage II diastolic dysfunction, mod MR, mild and mild to mod AR, mild TR with PAP 35-40 mmHg
Echo 03/01/2023: EF 20 to 25%, global hypokinesis
Plan:
-Presented with chest tightness and SOB. Admitted with acute heart failure exacerbation. ProBNP 5580.
-Continue diuresis with IV lasix 40mg BID. Creat stable at 0.5. Weight down to 132lbs.
-Continue to follow creat, daily weights, I&Os.
-Echo 02/2023 with EF 20-25%. No need to repeat at this time.
-Continue Coreg 6.25mg BID. Entresto has been cost prohibitive. Hypotension has otherwise limited uptitration of medical therapy.
-Follow BP this admission and consider addition of DANIEL/ARB/spironolactone
-Continue Jardiance 10mg daily.
-Nonischemic myocardial injury noted with peak troponin 0.040. She had cath in 2020 with nonobstructive CAD. Has previously refused repeat cath.
-Remains in SR on tele. Continue Eliquis 5mg BID for AC given h/o Afib.
-she is DNR. she is on palliative care.
-On 2L NC which is baseline.
HPI: Patient is an 83-year-old female with past medical history of chronic heart failure with reduced EF, EF 20 to 25% by echo 02/2023, paroxysmal atrial fibrillation and atrial tachycardia, history of PE and DVT, interstitial lung disease and asthma
who moved from home to [facility] approximately 1 month ago on palliative care. She states that yesterday she began with chest tightness and shortness of breath which worsened throughout the evening and this morning. She denies
radiation of pain from the chest, and denies nausea/vomiting or diaphoresis. She states she was on 2 L of supplemental oxygen this morning, however felt she needed 3 L. She reports she could not get help with this for some time. She states the
pain and shortness of breath lasted approximately 1-1/2 hours before being relieved with an increase in oxygen (apparently was hypoxic with improvement in increase to 4L NC). She reports orthopnea, lower extremity edema, dry cough, and 4 pound
weight gain over the last several days. She states she has been drinking a lot over the last couple days as she has had significant thirst. proBNP 5500. Chest x-ray with evidence of pulmonary edema suggestive of congestive heart failure
exacerbation. Cardiology consulted for evaluation
Progress Note - Respiratory Care Assistant
Subjective
Date of Service: May 06, 2023
Feeling better today. SOB improved.
Objective
Labs:
05/06/23 03:54
05/06/23 03:54
Labs
Hgb 12.1 g/dL (12.0-16.0) 05/06/23 03:54
Hct 39.2 % (37.0-47.0) 05/06/23 03:54
Plt Count 210 10^3/uL (130-400) 05/06/23 03:54
PT 19.9 Sec (11.4-14.6) H 05/05/23 12:07
INR 1.68 05/05/23 12:07
Sodium 136 mmol/L (135-145) 05/06/23 03:54
Potassium 3.1 mmol/L (3.5-5.1) L 05/06/23 03:54
BUN 18 mg/dl (7-17) H 05/06/23 03:54
Creatinine 0.5 mg/dL (0.6-1.0) L 05/06/23 03:54
Glucose 55 mg/dl (70-99) L* 05/06/23 03:54
Troponins
05/05/23 05/05/23 05/06/23
14:58 21:10 03:54
Troponin I 0.033 0.040 H* 0.032
Vital Signs and I&O:
Vital Signs
Temp Pulse Resp BP Pulse Ox
97.6 F 62 16 107/63 97
05/06/23 07:45 05/06/23 08:26 05/06/23 08:26 05/06/23 07:59 05/06/23 08:26
Vital Signs
Temp Pulse Resp BP Pulse Ox
97.6 F 62 16 107/63 97
05/06/23 07:45 05/06/23 08:26 05/06/23 08:26 05/06/23 07:59 05/06/23 08:26
Intake & Output
05/04/23 05/05/23 05/06/23 05/07/23
06:59 06:59 06:59 06:59
Intake Total 960 / 960
Balance 960 / 960
Physical Exam
Physical Exam
GEN: No distress, awake, alert, oriented x3
HEENT: supple, anicteric, mmm, supplemental O2 in place
LUNGS: few crackles at b/l bases, no wheezes
CV: Reg, S1/S2, 1/6 syst murmur
EXT: No clubbing, cyanosis, or edema. RLE wrapped
NEURO: Gross non-focal
SKIN: Warm, dry, no rash
[2023-05-06] MEDS: ROXICODONE 15 MG PO ×2 (14:39→22:04)
--- NOTE | 2023-05-06 15:30 | WOUNDNOTE ---
[facility] RN NOTE: Reviewed chart and met with patient. Patient has a multi-layer compression dressing on right foot and lower leg. It is unclear how long dressing has been on, but per patient report is has been less than 1 week. Patient states this was
applied by PT at OR and it provides great pain relief for her. This residential mortgage underwriter and RNNicolasa both requested that dressing be removed so skin could be assessed. Patient refused. This residential mortgage underwriter also explained that the dressing may be causing some pressure
injuries/wounds . Patient continued to refuse unless exact dressing could be applied. This residential mortgage underwriter explained that an DANIEL bandage could be applied, but multiple layer dressing are not available for in-patient use. Patient continued to refuse.
Hospitalist made aware. Will follow peripherally.
--- NOTE | 2023-05-06 15:37 | W.PN.HOSP.TC ---
Today's Communication/Plan
-
Held Glipizide and Insulin Sliding Scale due to low blood sugars
Continue IV diuresis
Assessment / Plan
Assessment / Plan
Physical Exam
General: Well Developed, Well Nourished and No Apparent Distress
HEENT: Normocephalic, Moist mucous membranes and Atraumatic
Respiratory: Rales and Crackles
Cardiac: S1/S2 and Regular Rhythm
GI: Soft, Non Tender, Non Distended and Normal Bowel Sounds
Musculoskeletal: No Cyanosis and No Edema
Skin: Warm. Dry.
Neuro: AAO x 3 and Nonfocal/grossly intact
Psych: Calm
Assessment/Plan
# Acute on chronic hypoxic respiratory failure likely from acute on chronic HFrEF exacerbation
#HFrEF
-Patient requiring 4 L of oxygen
-Patient uses 2 L at home
-BNP 5580
-Chest x-ray showed Cardiomegaly. Increased pulmonary vascularity suggesting CHF or acute cardiogenic pulmonary edema.
-Continue IV Lasix 40 twice a day
-Continue carvedilol.
-Strict I's and O's
-Check daily weights
-Wean oxygen as tolerated
-Fluid restriction
-Cardiology consulted, recommendations appreciated: hypotension in the past had limited adding goal directed medical therapy; will consider adding low-dose lisinopril if blood pressure tolerates
-COVID and flu negative
-ECHO /2023) with EF of 20-25%
-Per cardiology, patient has not tolerated Entresto, Aldactone, or other afterload agents because of hypotension.
# Hyponatremia likely hypervolemic
-Fluid restriction
-Diuretics
-BMP in a.m.
#Hypokalemia
-Replaced
-Monitor BMP
# History of COPD/asthma
-Not in acute exacerbation
-Albuterol as needed for short of breath and wheezing
-Symbicort continued
-Dexamethasone continued
# Hypothyroidism
-Levothyroxine
#Paroxysmal AF
-EKG with sinus rhythm with PVCs
- cont. Eliquis
- on carvedilol in setting of cardiomyopathy.
#Essential Hypertension
- Continue Coreg
#Hyperlipidemia
- cont. Crestor
#Asymptomatic Hypoglycemia
#DMT2
- Hold Glipizide due to hypoglycemia
- Jardiance
- Hold Insulin Sliding Scale due to hypoglycemia
#Diabetic Neuropathy
- cont. gabapentin
#HX ILDz with chronic hypoxic respiratory insufficiency at bedtime
- cont. Symbicort
- Home O2 uses 2 L of oxygen at bedtime
#Anxiety/Depression/Insomnia
- cont Zoloft
- cont doxepin
#GERD
-Continue Protonix
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
-Prior DARRYL -without any significant stenosis per prior record
-Continue oxy and morphine
#DVT prophylaxis
-eliquis
#CODE status
-DNR
Anticipated Discharge: > 48 hours
Subjective/Interval History
-
Date of Service: May 06, 2023
Patient was seen and examined. She reported some shortness of breath still, but otherwise denied any other new significant complaints. She had asymptomatic hypoglycemia overnight.
Objective Data
-
Labs:
Laboratory Results
05/06/23
03:54
WBC 6.7
Hgb 12.1
Hct 39.2
Plt Count 210
Sodium 136
Potassium 3.1 L
Chloride 95 L
Carbon Dioxide 33 H
BUN 18 H
Creatinine 0.5 L
Glucose 55 L*
Calcium 8.8
Total Bilirubin 0.9
AST 21
ALT 12
Alkaline Phosphatase 61
Vital Signs:
Vital Signs
Temp Pulse Resp BP Pulse Ox
98.4 F 81 18 97/59 95
05/06/23 15:26 05/06/23 15:26 05/06/23 15:26 05/06/23 15:26 05/06/23 15:26
I&O
05/05/23 05/06/23 05/07/23
06:59 06:59 06:59
Intake Total 960 / 960
Balance 960 / 960
[2023-05-06 16:11] LABS: Glucose - Point of Care 75 mg/dl (70-99)
--- NOTE | 2023-05-06 16:36 | PTCARENOTE ---
patient refused to let allow this RN and shredded filler cutter operator to remove pressure bandage from RLE. pt explained the importance of assessment during hospital stay to check for any new or existing wound, pt acknowledged understanding, but still refused. pt
states that since we do not have the materials that she uses to rewrap leg that she would like to wait until she is discharged. MD aware. continue to monitor pt
[2023-05-06] MEDS: TYLENOL 650 MG PO ×2 (20:05→23:38)
[2023-05-06 21:28] LABS: Glucose - Point of Care 116 mg/dl (70-99)
[2023-05-06] MEDS: SINEQUAN 25 MG PO (22:04)
[2023-05-06] MEDS: CRESTOR 10 MG PO (22:04)
[2023-05-07] VITALS (7 sets, daily range): BP systolic 89–153; BP diastolic 47–77; BMI 23.6
[2023-05-07] MEDS: SYNTHROID 50 MCG PO (06:14)
[2023-05-07 07:16] LABS: Glucose - Point of Care 75 mg/dl (70-99)
[2023-05-07] MEDS: FLORASTOR 250 MG PO (07:54)
[2023-05-07] MEDS: NEURONTIN 800 MG PO ×3 (07:55→21:25)
[2023-05-07] MEDS: ELIQUIS 5 MG PO ×2 (07:55→20:06)
[2023-05-07] MEDS: SYMBICORT 160/4.5 MCG INHALER 2 PUFF INH ×2 (07:55→21:02)
[2023-05-07] MEDS: ZOLOFT 50 MG PO (07:56)
[2023-05-07] MEDS: COREG 6.25 MG PO ×2 (07:56→21:28)
[2023-05-07] MEDS: DECADRON 2 MG PO (07:56)
[2023-05-07] MEDS: MS CONTIN (EXTENDED RELEASE) 15 MG PO ×2 (07:57→20:06)
[2023-05-07] MEDS: LASIX 40 MG IV ×2 (07:57→16:14)
[2023-05-07] MEDS: JARDIANCE 10 MG PO (07:57)
[2023-05-07] MEDS: DUONEB 3 ML INH ×2 (08:06→13:30)
[2023-05-07 08:20] LABS: Hematocrit 39.3 % (37.0-47.0); Hemoglobin 12.3 g/dL (12.0-16.0); Mean Corp Hgb Conc. 31.3 g/dL (33.0-37.0); Mean Corpuscular Hgb 25.3 pg (27.0-31.0); Mean Corpuscular Volume 80.7 fL (81.0-99.0); Mean Platelet Volume 11.5 fL (7.4-10.4); Platelet Count 213 10^3/uL (130-400); Red Blood Cell Count 4.87 10^6/uL (4.20-5.40); Red Cell Dist. Width 17.6 % (11.5-14.5)
[2023-05-07 08:27] LABS: Blood Urea Nitrogen 24 mg/dl (7-17); Calcium 8.5 mg/dl (8.4-10.2); Carbon Dioxide 34 mmol/L (22-30); Chloride 92 mmol/L (98-107); Estimated Creatinine Clearance 49 ml/min; Glucose 78 mg/dl (70-99); Sodium 131 mmol/L (135-145); eGFR > 60.00
[2023-05-07 08:33] LABS: Potassium 3.4 mmol/L (3.5-5.1)
--- NOTE | 2023-05-07 09:54 | W.PN.CARDCBS ---
Today's Communication / Plan
-
Continues to diurese. She admits to excessive water intake right before admit.
Cont fluid restriction; she asked if it can be increased slightly, will increase from 1200 to 1500 cc restriction.
Continue IV lasix 40 mg BID. Cr remains stable. Transition to oral lasix next 24 if continues to improve.
Replete lytes as needed.
Cr stable. Wt has been stable.
Remains on 2L O2 which she is on as outpt
Continue Coreg and Jardiance.
Hypotension in the past has limited adding medication for GDMT for CM
Echo 02/2023 with EF 20-25%. No need to repeat at this time.
Continue Coreg 6.25mg BID. Entresto has been cost prohibitive. Hypotension has otherwise limited uptitration of medical therapy.
Cont medical therapy of nonMI trop, peak 0.040. She had cath in 2019 with nonobstructive CAD. Has previously refused repeat cath.
Remains in SR on tele. Continue Eliquis 5mg BID for AC given h/o Afib.
DNR and on palliative care.
Impression / Plan
-
.
Primary Dispersion Mixer: Dr. Cody
Impression:
Presentation with chest tightness, SOB
Acute on chronic HFrEF
CM EF 20-25% by echo 02/2023
Paroxysmal atrial fibrillation / Paroxysmal atrial tachycardia
Previously managed with Tikosyn, but patient stopped taking on her own in past for unclear reasons
Chronic Eliquis 5 mg BID OAC
History of PE and DVT 07/31/21
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
Mild
Hx brief NSVT by Bardy monitor 06/2022
Interstitial lung disease/asthma on chronic supplemental O2
Sjogren's syndrome
Hypertension
Hyperlipidemia
Type 2 diabetes
Hypothyroidism
History of falls
Chronic back pain/chronic narcotic dependence
History of bowel resection for diverticulitis
Hyponatremia, mild
ECHO 06/25/22: TDS, EF 55%, mild to moderate concentric LVH prominent subaortic septum, stage II diastolic dysfunction, dilated left atrium, mitral sclerosis with dense posterior MAC, mild to moderate MR, mild with peak/mean gradients 21/12 mmHg,
mild AR, mild TR, PAP 35 to 40 mmHg
MUSA 07/15/22: EF 45-50%, mild conc LVH, mod MR, mild MS, mild with mild to mod AR
Echo 12/01/22: EF 20-25% with severe global hypokinesis, stage II diastolic dysfunction, mod MR, mild and mild to mod AR, mild TR with PAP 35-40 mmHg
Echo 03/01/2023: EF 20 to 25%, global hypokinesis
Plan:
Continues to diurese. She admits to excessive water intake right before admit.
Cont fluid restriction; she asked if it can be increased slightly, will increase from 1200 to 1500 cc restriction.
Continue IV lasix 40 mg BID. Cr remains stable. Transition to oral lasix next 24 if continues to improve.
Replete lytes as needed.
Cr stable. Wt has been stable.
Remains on 2L O2 which she is on as outpt
Continue Coreg and Jardiance.
Hypotension in the past has limited adding medication for GDMT for CM
Echo 02/2023 with EF 20-25%. No need to repeat at this time.
Continue Coreg 6.25mg BID. Entresto has been cost prohibitive. Hypotension has otherwise limited uptitration of medical therapy.
Cont medical therapy of nonMI trop, peak 0.040. She had cath in 2019 with nonobstructive CAD. Has previously refused repeat cath.
Remains in SR on tele. Continue Eliquis 5mg BID for AC given h/o Afib.
DNR and on palliative care.
Discussed with nursing.
HPI: Patient is an 83-year-old female with past medical history of chronic heart failure with reduced EF, EF 20 to 25% by echo 02/2023, paroxysmal atrial fibrillation and atrial tachycardia, history of PE and DVT, interstitial lung disease and asthma
who moved from home to [facility] approximately 1 month ago on palliative care. She states that yesterday she began with chest tightness and shortness of breath which worsened throughout the evening and this morning. She denies
radiation of pain from the chest, and denies nausea/vomiting or diaphoresis. She states she was on 2 L of supplemental oxygen this morning, however felt she needed 3 L. She reports she could not get help with this for some time. She states the
pain and shortness of breath lasted approximately 1-1/2 hours before being relieved with an increase in oxygen (apparently was hypoxic with improvement in increase to 4L NC). She reports orthopnea, lower extremity edema, dry cough, and 4 pound
weight gain over the last several days. She states she has been drinking a lot over the last couple days as she has had significant thirst. proBNP 5500. Chest x-ray with evidence of pulmonary edema suggestive of congestive heart failure
exacerbation. Cardiology consulted for evaluation
Progress Note - Dispersion Mixer
Subjective
Date of Service: May 07, 2023
Pt seen and examined. No cp. Low back pain.
Objective
Labs:
05/07/23 08:04
Labs
Hgb 12.1 g/dL (12.0-16.0) 05/06/23 03:54
Hct 39.2 % (37.0-47.0) 05/06/23 03:54
Plt Count 210 10^3/uL (130-400) 05/06/23 03:54
PT 19.9 Sec (11.4-14.6) H 05/05/23 12:07
INR 1.68 05/05/23 12:07
Sodium 131 mmol/L (135-145) L 05/07/23 08:04
Potassium 3.4 mmol/L (3.5-5.1) L 05/07/23 08:04
BUN 24 mg/dl (7-17) H 05/07/23 08:04
Creatinine 0.7 mg/dL (0.6-1.0) 05/07/23 08:04
Glucose 78 mg/dl (70-99) 05/07/23 08:04
Troponins
05/05/23 05/05/23 05/06/23
14:58 21:10 03:54
Troponin I 0.033 0.040 H* 0.032
Vital Signs and I&O:
Vital Signs
Temp Pulse Resp BP Pulse Ox
98.6 F 84 16 98/61 91
05/07/23 07:53 05/07/23 08:01 05/07/23 08:01 05/07/23 07:53 05/07/23 08:01
Vital Signs
Temp Pulse Resp BP Pulse Ox
98.6 F 84 16 98/61 91
05/07/23 07:53 05/07/23 08:01 05/07/23 08:01 05/07/23 07:53 05/07/23 08:01
Intake & Output
05/05/23 05/06/23 05/07/23 05/08/23
06:59 06:59 06:59 06:59
Intake Total 960 / 960 1020 / 1020
Output Total 300 / 300
Balance 960 / 960 720 / 720
Physical Exam
Physical Exam
General: No acute distress, AAOX3
Neck: Negative JVD
Heart: Regular, Negative S3 positive S1/S2, Negative S4, No murmur
Lungs: CTA b/l, negative wheezes/rales/rhonchi
Abd: Positive BS, NT/ND, neg rebound/rigidity/guarding
Ext: Negative cyanosis/clubbing/edema
Neuro: nonfocal
[2023-05-07] MEDS: ROXICODONE 15 MG PO (11:32)
[2023-05-07 12:17] LABS: Glucose - Point of Care 182 mg/dl (70-99)
[2023-05-07] MEDS: KCL ELIXIR 40 MEQ PO (13:56)
--- NOTE | 2023-05-07 14:08 | W.PN.HOSP.TC ---
Today's Communication/Plan
-
Anticipate switching to PO Lasix tomorrow
Hypoglycemia resolved
Assessment / Plan
Assessment / Plan
Physical Exam
General: Well Developed, Well Nourished and No Apparent Distress
HEENT: Normocephalic, Moist mucous membranes and Atraumatic
Respiratory: Rales and Crackles
Cardiac: S1/S2 and Regular Rhythm
GI: Soft, Non Tender, Non Distended and Normal Bowel Sounds
Musculoskeletal: No Cyanosis and No Edema
Skin: Warm. Dry.
Neuro: AAO x 3 and Nonfocal/grossly intact
Psych: Calm
Assessment/Plan
# Acute on chronic hypoxic respiratory failure likely from acute on chronic HFrEF exacerbation
#HFrEF
-Patient requiring 4 L of oxygen
-Patient uses 2 L at home
-BNP 5580
-Chest x-ray showed Cardiomegaly. Increased pulmonary vascularity suggesting CHF or acute cardiogenic pulmonary edema.
-Continue IV Lasix 40 twice a day
-Continue carvedilol.
-Strict I's and O's
-Check daily weights
-Wean oxygen as tolerated
-Fluid restriction
-Cardiology consulted, recommendations appreciated: hypotension in the past had limited adding goal directed medical therapy; will consider adding low-dose lisinopril if blood pressure tolerates
-COVID and flu negative
-ECHO /2023) with EF of 20-25%
-Per cardiology, patient has not tolerated Entresto, Aldactone, or other afterload agents because of hypotension.
# Hyponatremia likely hypervolemic
-Fluid restriction
-Diuretics
-BMP in a.m.
#Hypokalemia
-Replaced
-Monitor BMP
# History of COPD/asthma
-Not in acute exacerbation
-Albuterol as needed for short of breath and wheezing
-Symbicort continued
-Dexamethasone continued
# Hypothyroidism
-Levothyroxine
#Paroxysmal AF
-EKG with sinus rhythm with PVCs
- cont. Eliquis
- on carvedilol in setting of cardiomyopathy.
#Essential Hypertension
- Continue Coreg
#Hyperlipidemia
- cont. Crestor
#Asymptomatic Hypoglycemia - RESOLVED
#DMT2
- Continue to hold Glipizide due to hypoglycemia
- Jardiance
- Hold Insulin Sliding Scale due to hypoglycemia
#Diabetic Neuropathy
- cont. gabapentin
#HX ILDz with chronic hypoxic respiratory insufficiency at bedtime
- cont. Symbicort
- Home O2 uses 2 L of oxygen at bedtime
#Anxiety/Depression/Insomnia
- cont Zoloft
- cont doxepin
#GERD
-Continue Protonix
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
-Prior DARRYL -without any significant stenosis per prior record
-Continue oxy and morphine
#DVT prophylaxis
-eliquis
#CODE status
-DNR
Anticipated Discharge: 24 - 48 hours
Subjective/Interval History
-
Date of Service: May 07, 2023
Patient was seen and examined. She denied any shortness of breath, and she did not have any significant shortness of breath.
Objective Data
-
Labs:
Laboratory Results
05/07/23
08:04
WBC 5.0
Hgb 12.3
Hct 39.3
Plt Count 213
Sodium 131 L
Potassium 3.4 L
Chloride 92 L
Carbon Dioxide 34 H
BUN 24 H
Creatinine 0.7
Glucose 78
Calcium 8.5
Vital Signs:
Vital Signs
Temp Pulse Resp BP Pulse Ox
97.2 F 88 16 110/64 87
05/07/23 11:28 05/07/23 13:34 05/07/23 13:34 05/07/23 11:28 05/07/23 13:34
I&O
05/06/23 05/07/23 05/08/23
06:59 06:59 06:59
Intake Total 960 / 960 1020 / 1020
Output Total 300 / 300
Balance 960 / 960 720 / 720
[2023-05-07 16:41] LABS: Glucose - Point of Care 166 mg/dl (70-99)
--- NOTE | 2023-05-07 16:58 | PTCARENOTE ---
Patient with noon blood sugar of 182-hospitalist aware, patient asymptomatic.
[2023-05-07] MEDS: CRESTOR 10 MG PO (21:25)
[2023-05-07] MEDS: SINEQUAN 25 MG PO (21:26)
[2023-05-07 21:51] LABS: Glucose - Point of Care 106 mg/dl (70-99)
[2023-05-08] VITALS (7 sets, daily range): BP systolic 84–128; BP diastolic 44–79; BMI 23.6
--- NOTE | 2023-05-08 02:12 | PTCARENOTE ---
Pt. had burst of SVT 150's while lying in bed, no chest pain, pt. broke to NSR in 90's, EKG done, vs stable, ALEXY Parrish notified.
[2023-05-08] MEDS: SYNTHROID 50 MCG PO (06:36)
[2023-05-08] MEDS: SYMBICORT 160/4.5 MCG INHALER 2 PUFF INH ×2 (07:53→20:08)
[2023-05-08] MEDS: DUONEB 3 ML INH ×2 (07:53→13:33)
[2023-05-08 08:39] LABS: Hematocrit 37.8 % (37.0-47.0); Hemoglobin 11.9 g/dL (12.0-16.0); Mean Corp Hgb Conc. 31.5 g/dL (33.0-37.0); Mean Corpuscular Hgb 25.4 pg (27.0-31.0); Mean Corpuscular Volume 80.6 fL (81.0-99.0); Mean Platelet Volume 11.8 fL (7.4-10.4); Platelet Count 190 10^3/uL (130-400); Red Blood Cell Count 4.69 10^6/uL (4.20-5.40); Red Cell Dist. Width 17.5 % (11.5-14.5); White Blood Cell Count 5.5 10^3/uL (4.8-10.8)
--- NOTE | 2023-05-08 08:54 | W.PN.CARDCBS ---
Addendum entered and electronically signed by Toni Shook DO 05/08/23 09:52:
..
Please recall if needed
Original Note:
Today's Communication / Plan
-
Work up and eval of fever as per primary service.
Her wt is stable. She admitted to excessive water intake right before admit.
Cont fluid restriction; she asked if it can be increased slightly and it was increased from 1200 to 1500 cc restriction.
Transition to oral lasix at outpt dosing of 40 mg daily as she had been noncompliant with fluids prior to admit. Stop IV lasix. Cr remains stable.
Replete lytes as needed.
Cr stable. Wt has been stable.
Remains on 2L O2 which she is on as outpt
Impression / Plan
-
.
Primary Research Contracts Supervisor: Dr. Cody
Impression:
Presentation with chest tightness, SOB
Acute on chronic HFrEF
CM EF 20-25% by echo 02/2023
Paroxysmal atrial fibrillation / Paroxysmal atrial tachycardia
Previously managed with Tikosyn, but patient stopped taking on her own in past for unclear reasons
Chronic Eliquis 5 mg BID OAC
History of PE and DVT 07/31/21
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
Mild
Hx brief NSVT by Bardy monitor 06/2022
Interstitial lung disease/asthma on chronic supplemental O2
Sjogren's syndrome
Hypertension
Hyperlipidemia
Type 2 diabetes
Hypothyroidism
History of falls
Chronic back pain/chronic narcotic dependence
History of bowel resection for diverticulitis
Hyponatremia, mild
ECHO 06/25/22: TDS, EF 55%, mild to moderate concentric LVH prominent subaortic septum, stage II diastolic dysfunction, dilated left atrium, mitral sclerosis with dense posterior MAC, mild to moderate MR, mild with peak/mean gradients 21/12 mmHg,
mild AR, mild TR, PAP 35 to 40 mmHg
MUSA 07/15/22: EF 45-50%, mild conc LVH, mod MR, mild MS, mild with mild to mod AR
Echo 12/01/22: EF 20-25% with severe global hypokinesis, stage II diastolic dysfunction, mod MR, mild and mild to mod AR, mild TR with PAP 35-40 mmHg
Echo 03/01/2023: EF 20 to 25%, global hypokinesis
Plan:
Work up and eval of fever as per primary service.
Her wt is stable. She admitted to excessive water intake right before admit.
Cont fluid restriction; she asked if it can be increased slightly and it was increased from 1200 to 1500 cc restriction.
Transition to oral lasix at outpt dosing of 40 mg daily as she had been noncompliant with fluids prior to admit. Stop IV lasix. Cr remains stable.
Replete lytes as needed.
Cr stable. Wt has been stable.
Remains on 2L O2 which she is on as outpt
Continue Coreg and Jardiance.
Hypotension in the past has limited adding medication for GDMT for CM
Echo 02/2023 with EF 20-25%. No need to repeat at this time.
Continue Coreg 6.25mg BID. Entresto has been cost prohibitive. Hypotension has otherwise limited uptitration of medical therapy.
Cont medical therapy of nonMI trop, peak 0.040. She had cath in 2019 with nonobstructive CAD. Has previously refused repeat cath.
Remains in SR on tele. Continue Eliquis 5mg BID for AC given h/o Afib.
DNR and on palliative care.
Discussed with nursing.
HPI: Patient is an 83-year-old female with past medical history of chronic heart failure with reduced EF, EF 20 to 25% by echo 02/2023, paroxysmal atrial fibrillation and atrial tachycardia, history of PE and DVT, interstitial lung disease and asthma
who moved from home to [facility] approximately 1 month ago on palliative care. She states that yesterday she began with chest tightness and shortness of breath which worsened throughout the evening and this morning. She denies
radiation of pain from the chest, and denies nausea/vomiting or diaphoresis. She states she was on 2 L of supplemental oxygen this morning, however felt she needed 3 L. She reports she could not get help with this for some time. She states the
pain and shortness of breath lasted approximately 1-1/2 hours before being relieved with an increase in oxygen (apparently was hypoxic with improvement in increase to 4L NC). She reports orthopnea, lower extremity edema, dry cough, and 4 pound
weight gain over the last several days. She states she has been drinking a lot over the last couple days as she has had significant thirst. proBNP 5500. Chest x-ray with evidence of pulmonary edema suggestive of congestive heart failure
exacerbation. Cardiology consulted for evaluation
Progress Note - Research Contracts Supervisor
Subjective
Date of Service: May 08, 2023
Pt seen and examined. No complaints. No chest pain or shortness of breath.
Objective
Labs:
05/08/23 08:12
Labs
Hgb 11.9 g/dL (12.0-16.0) L 05/08/23 08:12
Hct 37.8 % (37.0-47.0) 05/08/23 08:12
Plt Count 190 10^3/uL (130-400) 05/08/23 08:12
PT 19.9 Sec (11.4-14.6) H 05/05/23 12:07
INR 1.68 05/05/23 12:07
Sodium 131 mmol/L (135-145) L 05/07/23 08:04
Potassium 3.4 mmol/L (3.5-5.1) L 05/07/23 08:04
BUN 24 mg/dl (7-17) H 05/07/23 08:04
Creatinine 0.7 mg/dL (0.6-1.0) 05/07/23 08:04
Glucose 78 mg/dl (70-99) 05/07/23 08:04
Troponins
05/05/23 05/05/23 05/06/23
14:58 21:10 03:54
Troponin I 0.033 0.040 H* 0.032
Vital Signs and I&O:
Vital Signs
Temp Pulse Resp BP Pulse Ox
99.6 F 99 16 98/61 94
05/08/23 04:05 05/08/23 07:57 05/08/23 07:57 05/08/23 04:05 05/08/23 07:57
Vital Signs
Temp Pulse Resp BP Pulse Ox
99.6 F 99 16 98/61 94
05/08/23 04:05 05/08/23 07:57 05/08/23 07:57 05/08/23 04:05 05/08/23 07:57
Intake & Output
05/06/23 05/07/23 05/08/23 05/09/23
06:59 06:59 06:59 06:59
Intake Total 960 / 960 1020 / 1020 600 / 600
Output Total 300 / 300
Balance 960 / 960 720 / 720 600 / 600
Physical Exam
Physical Exam
General: No acute distress, AAOX3
Neck: Negative JVD
Heart: Regular, Negative S3 positive S1/S2, Negative S4, No murmur
Lungs: CTA b/l, negative wheezes/rales/rhonchi
Abd: Positive BS, NT/ND, neg rebound/rigidity/guarding
Ext: Negative cyanosis/clubbing/edema. leg wrap
Neuro: nonfocal
[2023-05-08] MEDS: NEURONTIN 800 MG PO ×3 (09:05→20:59)
[2023-05-08] MEDS: FLORASTOR 250 MG PO (09:06)
[2023-05-08] MEDS: COREG 6.25 MG PO ×2 (09:06→20:58)
[2023-05-08] MEDS: ELIQUIS 5 MG PO ×2 (09:07→20:59)
[2023-05-08] MEDS: JARDIANCE 10 MG PO (09:07)
[2023-05-08] MEDS: MS CONTIN (EXTENDED RELEASE) 15 MG PO ×2 (09:07→20:58)
[2023-05-08] MEDS: ZOLOFT 50 MG PO (09:08)
[2023-05-08] MEDS: LASIX 40 MG IV (09:08)
[2023-05-08] MEDS: DECADRON 2 MG PO (09:08)
[2023-05-08 09:18] LABS: Blood Urea Nitrogen 23 mg/dl (7-17); Calcium 8.4 mg/dl (8.4-10.2); Carbon Dioxide 34 mmol/L (22-30); Chloride 92 mmol/L (98-107); Estimated Creatinine Clearance 49 ml/min; Glucose 104 mg/dl (70-99); Magnesium 2.1 mg/dl (1.6-2.3); Sodium 129 mmol/L (135-145); eGFR > 60.00
[2023-05-08 09:22] LABS: Glucose - Point of Care 118 mg/dl (70-99)
[2023-05-08 09:41] LABS: Potassium 3.7 mmol/L (3.5-5.1)
--- NOTE | 2023-05-08 10:27 | PTCARENOTE ---
Patient with Temp 100.4 today, hospitalist aware. Pt states she had a good nite 'slept well ' No complaints at this time.
[2023-05-08] MEDS: ROXICODONE 15 MG PO (11:03)
[2023-05-08 12:46] LABS: Glucose - Point of Care 155 mg/dl (70-99)
--- NOTE | 2023-05-08 15:42 | W.PN.HOSP.TC ---
Today's Communication/Plan
-
Patient with fever this morning -- now does not want to go home today b/c of fever
Fever work-up ordered including CXR
Assessment / Plan
Assessment / Plan
Physical Exam
General: Well Developed, Well Nourished and No Apparent Distress
HEENT: Normocephalic, Moist mucous membranes and Atraumatic
Respiratory: Rales and Crackles - IMPROVED. NOW COUGHING.
Cardiac: S1/S2 and Regular Rhythm
GI: Soft, Non Tender, Non Distended and Normal Bowel Sounds
Musculoskeletal: No Cyanosis and No Edema
Skin: Warm. Dry.
Neuro: AAO x 3 and Nonfocal/grossly intact
Psych: Calm
Assessment/Plan
# Acute on chronic hypoxic respiratory failure likely from acute on chronic HFrEF exacerbation
#HFrEF
-Was non-compliant with PO fluid restriction [employer] which likely played a major role in CHF exacerbation
-Patient initially this hospitalization needing 4 L of oxygen
-Patient uses 2 L at home --> now back to baseline
-Chest x-ray showed Cardiomegaly. Increased pulmonary vascularity suggesting CHF or acute cardiogenic pulmonary edema.
-BNP was significantly elevated
-Status post IV Lasix 40 twice a day--> now switched back to Lasix 40 mg daily (patient's home dose)
-Continue carvedilol.
-Strict I's and O's
-Check daily weights
-Wean oxygen as tolerated
-Fluid restriction
-Cardiology consulted, recommendations appreciated: hypotension in the past had limited adding goal directed medical therapy; will consider adding low-dose lisinopril if blood pressure tolerates
-COVID and flu negative
-ECHO /2023) with EF of 20-25%
-Per cardiology, patient has not tolerated Entresto, Aldactone, or other afterload agents because of hypotension.
#Fever 100.4 F on May 08, 2023 morning -- associated with coughin
-Check for Flu and COVID again
-Check repeat CXR
-Blood cultures
# Hyponatremia likely hypervolemic
-Fluid restriction
-Diuretics
-BMP in a.m.
#Hypokalemia
-Replaced
-Monitor BMP
# History of COPD/asthma
-Not in acute exacerbation
-Albuterol as needed for short of breath and wheezing
-Symbicort continued
-Dexamethasone continued
# Hypothyroidism
-Levothyroxine
#Paroxysmal AF
-EKG with sinus rhythm with PVCs
- cont. Eliquis
- on carvedilol in setting of cardiomyopathy.
#Essential Hypertension
- Continue Coreg
#Hyperlipidemia
- cont. Crestor
#Asymptomatic Hypoglycemia - RESOLVED
#DMT2
- Continue to hold Glipizide due to hypoglycemia
- Jardiance
- Hold Insulin Sliding Scale due to hypoglycemia
#Diabetic Neuropathy
- cont. gabapentin
#HX ILDz with chronic hypoxic respiratory insufficiency at bedtime
- cont. Symbicort
- Home O2 uses 2 L of oxygen at bedtime
#Anxiety/Depression/Insomnia
- cont Zoloft
- cont doxepin
#GERD
-Continue Protonix
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
-Prior DARRYL -without any significant stenosis per prior record
-Continue oxy and morphine
#DVT prophylaxis
-eliquis
#CODE status
-DNR
Anticipated Discharge: 24 - 48 hours
Subjective/Interval History
-
Date of Service: May 08, 2023
Patient was seen and examined. She reported she had fever earlier this morning, and now is coughing. She otherwise denied any other new significant symptoms or complaints.
Objective Data
-
Labs:
Laboratory Results
05/08/23
08:12
WBC 5.5
Hgb 11.9 L
Hct 37.8
Plt Count 190
Sodium 129 L
Potassium 3.7
Chloride 92 L
Carbon Dioxide 34 H
BUN 23 H
Creatinine 0.7
Glucose 104 H
Calcium 8.4
Vital Signs:
Vital Signs
Temp Pulse Resp BP Pulse Ox
98.6 F 86 16 105/53 95
05/08/23 11:00 05/08/23 13:55 05/08/23 13:55 05/08/23 12:58 05/08/23 13:55
I&O
05/07/23 05/08/23 05/09/23
06:59 06:59 06:59
Intake Total 1020 / 1020 600 / 600
Output Total 300 / 300
Balance 720 / 720 600 / 600
[2023-05-08 16:30] LABS: Glucose - Point of Care 218 mg/dl (70-99)
[2023-05-08 16:30] LABS: COVID-19 Antigen Negative (Negative)
--- NOTE | 2023-05-08 17:27 | PTCARENOTE ---
Patient with AM 102/56, 11 am 84/44 , recheck 105/53 , 3 pm 96/52 , did c/o dizzyness, encouraged to call for assist ,was compliant with this. appetite 75% at dinner. COVID swab , flu swab pending, port chest xray complete. Call dixon in reach, no
complaints at present .
[2023-05-08] MEDS: CRESTOR 10 MG PO (20:58)
[2023-05-08] MEDS: SINEQUAN 25 MG PO (20:59)
[2023-05-08 22:09] LABS: Glucose - Point of Care 123 mg/dl (70-99)
[2023-05-08] MEDS: TYLENOL 650 MG PO (22:58)
[2023-05-09] VITALS (9 sets, daily range): BP systolic 90–131; BP diastolic 47–79; BMI 23.6
[2023-05-09] MEDS: SYNTHROID 50 MCG PO (05:05)
--- NOTE | 2023-05-09 07:25 | PTCARENOTE ---
Pt asked for R leg compression wrap to be cut off because it felt loose. While Pt was offered a rewrapping of the leg, she a new compression wrap, and said she would rather get it wrapped at her outpatient physical therapy.
[2023-05-09] MEDS: SYMBICORT 160/4.5 MCG INHALER 2 PUFF INH ×2 (07:28→18:13)
[2023-05-09 07:40] LABS: Glucose - Point of Care 113 mg/dl (70-99)
[2023-05-09 08:48] LABS: Hematocrit 36.4 % (37.0-47.0); Hemoglobin 11.7 g/dL (12.0-16.0); Mean Corp Hgb Conc. 32.1 g/dL (33.0-37.0); Mean Corpuscular Hgb 25.2 pg (27.0-31.0); Mean Corpuscular Volume 78.3 fL (81.0-99.0); Mean Platelet Volume 12.1 fL (7.4-10.4); Platelet Count 152 10^3/uL (130-400); Red Blood Cell Count 4.65 10^6/uL (4.20-5.40); Red Cell Dist. Width 17.4 % (11.5-14.5)
[2023-05-09 09:28] LABS: Blood Urea Nitrogen 24 mg/dl (7-17); Calcium 8.3 mg/dl (8.4-10.2); Carbon Dioxide 32 mmol/L (22-30); Chloride 91 mmol/L (98-107); Estimated Creatinine Clearance 57 ml/min; Glucose 97 mg/dl (70-99); Magnesium 2.1 mg/dl (1.6-2.3); Potassium 3.5 mmol/L (3.5-5.1); Sodium 129 mmol/L (135-145); eGFR > 60.00
[2023-05-09] MEDS: ELIQUIS 5 MG PO ×2 (10:49→20:17)
[2023-05-09] MEDS: FLORASTOR 250 MG PO (10:49)
[2023-05-09] MEDS: LASIX 40 MG PO (10:50)
[2023-05-09] MEDS: COREG 6.25 MG PO ×2 (10:50→20:17)
[2023-05-09] MEDS: DECADRON 2 MG PO (10:50)
[2023-05-09] MEDS: NEURONTIN 800 MG PO (10:50)
[2023-05-09] MEDS: JARDIANCE 10 MG PO (10:50)
[2023-05-09] MEDS: MS CONTIN (EXTENDED RELEASE) 15 MG PO ×2 (10:50→20:14)
[2023-05-09] MEDS: ZOLOFT 50 MG PO (10:50)
--- NOTE | 2023-05-09 11:26 | W.PN.HOSP.TC ---
Addendum entered and electronically signed by Jason Fernández MD 05/09/23 16:11:
Updated patient's daughter Daja with change in condition therefore expanded on now with issues of left lower lobe pneumonia along with recurrence of heart failure and now rapid ventricular response atrial fibrillation and the need for transfer to
intermediate care unit noting the patient is DO NOT RESUSCITATE status and palliative care options had been entertained in the past should this condition be refractory consideration may be appropriate for hospice she hide she does with further IV
diuresis and attempts at rate control by cardiology.
Original Note:
Today's Communication/Plan
-
Will need to transfer to intermediate care
Rapid ventricular response A-fib contributing to presentation of pulmonary edema
Also possible concomitant new left lower lobe pneumonia
Stat dose of IV furosemide and 5 mg Lopressor for rate
Asked cardiology to come back and see
Titrate oxygen to need
Assessment / Plan
Assessment / Plan
Physical Exam
General: Well Developed, Well Nourished and No Apparent Distress
HEENT: Normocephalic, Moist mucous membranes and Atraumatic
Respiratory: Rales and Crackles - IMPROVED. NOW COUGHING.
Cardiac: S1/S2 and Regular Rhythm
GI: Soft, Non Tender, Non Distended and Normal Bowel Sounds
Musculoskeletal: No Cyanosis and No Edema
Skin: Warm. Dry.
Neuro: AAO x 3 and Nonfocal/grossly intact
Psych: Calm
Assessment/Plan
# Acute on chronic hypoxic respiratory failure likely from acute on chronic HFrEF exacerbation
#HFrEF
Developed acute respiratory distress this morning and seems to be in pulmonary edema/
-
-Was non-compliant with PO fluid restriction RN HEMODIALYSIS which likely played a major role in CHF exacerbation
-Patient initially this hospitalization needing 4 L of oxygen
-Patient uses 2 L at home --> now back to baseline
-Chest x-ray showed Cardiomegaly. Increased pulmonary vascularity suggesting CHF or acute cardiogenic pulmonary edema.
-BNP was significantly elevated
-Status post IV Lasix 40 twice a day--> now switched back to Lasix 40 mg daily (patient's home dose)/on May 07/now switched back to IV Lasix given pulmonary edema and RVR
-Continue carvedilol.
-Strict I's and O's
-Check daily weights
-Wean oxygen as tolerated
-Fluid restriction
-Cardiology consulted, recommendations appreciated: hypotension in the past had limited adding goal directed medical therapy; will consider adding low-dose lisinopril if blood pressure tolerates
-COVID and flu negative
-ECHO /2023) with EF of 20-25%
-Per cardiology, patient has not tolerated Entresto, Aldactone, or other afterload agents because of hypotension.
#Fever 100.4 F on May 08, 2023 morning -- associated with coughin
-Check for Flu and COVID again
-Check repeat CXR/now notes a left basilar opacity consistent with possible healthcare acquired pneumonia
-Will place on cefepime/doxycycline p.o./check MRSA screen
-Blood cultures thus far negative
# Hyponatremia likely hypervolemic
-Fluid restriction
-Diuretics
-BMP in a.m.
#Hypokalemia
-Replaced
-Monitor BMP
# History of COPD/asthma
-Not in acute exacerbation
-Albuterol as needed for short of breath and wheezing
-Symbicort continued
-Dexamethasone continued
# Hypothyroidism
-Levothyroxine
#Paroxysmal AF/developed rapid ventricular response May 08
-EKG with sinus rhythm with PVCs
- cont. Eliquis
- on carvedilol in setting of cardiomyopathy.
#Essential Hypertension
- Continue Coreg
#Hyperlipidemia
- cont. Crestor
#Asymptomatic Hypoglycemia - RESOLVED
#DMT2
- Continue to hold Glipizide due to hypoglycemia
- Jardiance
- Hold Insulin Sliding Scale due to hypoglycemia
#Diabetic Neuropathy
- cont. gabapentin
#HX ILDz with chronic hypoxic respiratory insufficiency at bedtime
- cont. Symbicort
- Home O2 uses 2 L of oxygen at bedtime
#Anxiety/Depression/Insomnia
- cont Zoloft
- cont doxepin
#GERD
-Continue Protonix
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
-Prior DARRYL -without any significant stenosis per prior record
-Continue oxy and morphine
#DVT prophylaxis
-eliquis
#CODE status
-DNR
Anticipated Discharge: 24 - 48 hours
Subjective/Interval History
-
Date of Service: May 09, 2023
Patient with acute respiratory distress rapid heart rate and congestion
Objective Data
-
Labs:
Laboratory Results
05/09/23
08:17
WBC 5.0
Hgb 11.7 L
Hct 36.4 L
Plt Count 152
Sodium 129 L
Potassium 3.5
Chloride 91 L
Carbon Dioxide 32 H
BUN 24 H
Creatinine 0.5 L
Glucose 97
Calcium 8.3 L
Vital Signs:
Vital Signs
Temp Pulse Resp BP Pulse Ox
97.6 F 114 20 131/71 99
05/09/23 11:19 05/09/23 11:19 05/09/23 11:19 05/09/23 11:19 05/09/23 11:19
I&O
05/08/23 05/09/23 05/10/23
06:59 06:59 06:59
Intake Total 600 / 600 960 / 960
Balance 600 / 600 960 / 960
Review of Systems
-
History Source: Patient and Coordinated Provider
Constitutional: Reports Fever and Fatigue
Respiratory: Reports Cough and Trouble Breathing
Abdomen/GI: Reports No Symptoms
Physical Exam
-
General: Respiratory Distress and Appears in Distress
HEENT: Normocephalic
Respiratory: Clear to Auscultation
Cardiac: Irregular Rhythm and Tachycardic
GI: Soft, Nontender and Nondistended
Musculoskeletal: Edema, Right Lower Extrem and Edema, Left Lower Extrem
Neuro: Awake and Alert
Psych: Anxious
Data Reviewed
-
Total Time Spent with Patient (in minutes): 56
Critical Care Time (in minutes): 56
Labs: Labs Reviewed by me
[2023-05-09] MEDS: LOPRESSOR 5 MG IV (11:45)
[2023-05-09] MEDS: LASIX 40 MG IV (11:45)
[2023-05-09 11:50] LABS: Glucose - Point of Care 127 mg/dl (70-99)
--- NOTE | 2023-05-09 12:00 | PTCARENOTE ---
Pt noted to have multiple episodes of sinus tachycardia w rates 160's-170's/sinus arrhythmia on monitor. This nurse performed assessment of Pt- Pt was noted to have removed O2 and tubing was found on floor. At the same time of bid clerk, "Stefany"Pradeep visited the Pt. Pt was was noted to be drowsy and SOB. Lungs sounds diminished, coarse with crackles. O2 placed back on Pt and bumped from 2L to 6L temporarily then to 4L until SpO2 normalized at 92%. Pt encouraged to perform deep
breathing exercises. 1 time STAT doses of Lopressor and Lasix ordered by Dr. Fernández given immediately. Cardiology consult ordered. HR dropped back down into 90's s/p Lopressor dose. Per Dr. Fernández order- initialization of TXFR to IMU started.
--- NOTE | 2023-05-09 12:00 | W.PN.CARDCBS ---
Addendum entered and electronically signed by Dane Rodriguez MD 05/09/23 16:40:
Patient more short of breath, episodes of very rapid atrial tachycardia, none for the last few hours, she is markedly symptomatic during these episodes. Nurses reports she is noncompliant, restless in the bed, taking oxygen off, at this moment,
patient says she is back to baseline but still short of breath, sitting on side of bed, asleep against the rail.
Allergies: Prednisone
Outpatient medications: Albuterol as needed, Symbicort, carvedilol 6.25 once daily, dexamethasone, 2 mg a day, dicyclomine, doxepin, Eliquis 5 mg twice daily, furosemide 40 mg daily, gabapentin, glipizide 5 mg a day, levothyroxine, lidocaine patch,
Lopid, morphine, oxycodone, rosuvastatin 10 mg daily and sertraline 50 mg a day
Current meds:Apixaban 5 mg twice daily, Symbicort, dexamethasone 2 mg a day, doxepin 25 mg at bedtime, Neurontin, glipizide, levothyroxine 50 mcg a day, morphine extended release 15 every 12, rosuvastatin 10 mg at bedtime, sertraline 50 mg a day,
carvedilol 6.25 mg daily, Jardiance 10 mg a day, furosemide 40 mg daily
PMH/PSH/SH/FH: Reviewed
ROS: Negative except as above
131/71, pulse 114, respiratory 20, sats 99%'s, intake and output incomplete, weight is 60.47 kg if accurate completely unchanged to the 100s over the last 3 days and not much changed from admission weight, although first weight on the was 66.3
kg and then 7 hours later down 5.8 kg
Cachectic, chronically ill, temporal wasting, diffuse rhonchi and wheezes, intermittently irregular rate and rhythm around 100, soft systolic murmur, JVD difficult to assess, probably okay, abdomen benign, not much edema, neuro nonfocal, may be
mildly confused
Chest x-ray yesterday cardiomegaly, possible minimal vascular congestion, possible left basilar infiltrate
EKG today sinus tachycardia with PACs, possible septal PR, PVCs left axis deviation
White count 5, hemoglobin 11.7, MCV 78, sodium 129, potassium 3.5, BUN and creatinine 24 and 0.5, procalcitonin negative, proBNP was 5580 on May 04, was 5850 in February
Telemetry: Periods of atrial tachycardia rates of 170
Impression:
Multifactorial respiratory failure
Acute exacerbation of COPD
Acute HFimpEF
Paroxysmal atrial fibrillation/tachycardia
History of PE/DVT
Nonobstructive CAD by cardiac catheterization 2019
Mild to moderate mitral regurgitation
Mild aortic ceruminosis
Interstitial lung disease/asthma
Sjogren's
Hypertension
Hyperlipidemia
Plan:
At present, I think her deterioration today is more related to intrinsic lung disease and atrial arrhythmias rather than CHF.
Will check a proBNP and troponin. For now, continue oral Lasix, she received IV Lasix x 1 today.
Her atrial tachycardia is not well-tolerated, she had been on dofetilide, unclear if it was stopped for a good reason. No history of amiodarone intolerance so given her limited options we will add amiodarone despite her lung disease.
She had been on Tikosyn until November. Unclear whether it was stopped for toxicity or adverse reaction or whether she simply stopped it on her own, which she did once before. I will check with her primary buncher hand. If no toxicity I will
restart Tikosyn. If Tikosyn cannot be restarted I will start amiodarone.
Original Note:
Today's Communication / Plan
-
Being transferred to [facility]
Abx per primary service
IV lasix 40mg x1
s/p IV lopressor 5mg x1.
If atach continues, may consider increasing rate control meds vs addition of antiarrhythmic
Impression / Plan
-
Primary Marking Clerk: Dr. Cody
Impression:
Presentation with chest tightness, SOB
Acute on chronic HFrEF
CM EF 20-25% by echo 02/2023
Paroxysmal atrial fibrillation / Paroxysmal atrial tachycardia
Previously managed with Tikosyn, but patient stopped taking on her own in past for unclear reasons
Chronic Eliquis 5 mg BID OAC
History of PE and DVT 07/31/21
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
Mild
h/o brief NSVT by [facility] monitor 06/2022
Interstitial lung disease/asthma on chronic supplemental O2
Sjogren's syndrome
Hypertension
Hyperlipidemia
Type 2 diabetes
Hypothyroidism
History of falls
Chronic back pain/chronic narcotic dependence
History of bowel resection for diverticulitis
Hyponatremia, mild
ECHO 06/25/22: TDS, EF 55%, mild to moderate concentric LVH prominent subaortic septum, stage II diastolic dysfunction, dilated left atrium, mitral sclerosis with dense posterior MAC, mild to moderate MR, mild with peak/mean gradients 21/12 mmHg,
mild AR, mild TR, PAP 35 to 40 mmHg
MUSA 07/15/22: EF 45-50%, mild conc LVH, mod MR, mild MS, mild with mild to mod AR
Echo 12/01/22: EF 20-25% with severe global hypokinesis, stage II diastolic dysfunction, mod MR, mild and mild to mod AR, mild TR with PAP 35-40 mmHg
Echo 03/01/2023: EF 20 to 25%, global hypokinesis
Plan:
-Presented with chest tightness and SOB. Admitted with acute heart failure exacerbation. ProBNP 5580.
-Diuresed with IV lasix and transitioned to PO lasix 40mg daily on 05/08, however then decompensated and had increased oxygen requirements, up to 4L currently.
-Repeat CXR 05/07 noted new basilar pneumonia. Continue IV abx per primary service.
-Given another dose of IV lasix 05/08. Creat stable at 0.5. Will continue to follow. Weight stable at 133lbs.
-Echo 02/2023 with EF 20-25%.
-Continue Coreg 6.25mg BID and Jardiance 10mg daily. Entresto has been cost prohibitive. Hypotension has otherwise limited uptitration of medical therapy.
-Nonischemic myocardial injury noted with peak troponin 0.040. She had cath in 2019 with nonobstructive CAD. Has previously refused repeat cath.
-Had been maintaining SR this admission, although 05/08 appears to have gone into a rapid atrial tachycardia on review of telemetry w/ HRs into the 150s at times.
-Given 5mg IV lopressor x1. Back in SR, but still w/ episodes of atrial tachycardia.
-Continue Eliquis 5mg BID for AC given h/o Afib.
-she is DNR. she is on palliative care.
-On 4L NC, increased from 2L which is baseline.
HPI: Patient is an 83-year-old female with past medical history of chronic heart failure with reduced EF, EF 20 to 25% by echo 02/2023, paroxysmal atrial fibrillation and atrial tachycardia, history of PE and DVT, interstitial lung disease and asthma
who moved from home to [facility] approximately 1 month ago on palliative care. She states that yesterday she began with chest tightness and shortness of breath which worsened throughout the evening and this morning. She denies
radiation of pain from the chest, and denies nausea/vomiting or diaphoresis. She states she was on 2 L of supplemental oxygen this morning, however felt she needed 3 L. She reports she could not get help with this for some time. She states the
pain and shortness of breath lasted approximately 1-1/2 hours before being relieved with an increase in oxygen (apparently was hypoxic with improvement in increase to 4L NC). She reports orthopnea, lower extremity edema, dry cough, and 4 pound
weight gain over the last several days. She states she has been drinking a lot over the last couple days as she has had significant thirst. proBNP 5500. Chest x-ray with evidence of pulmonary edema suggestive of congestive heart failure
exacerbation. Cardiology consulted for evaluation
Progress Note - Marking Clerk
Subjective
Date of Service: May 09, 2023
Increased SOB and intermittent palpitations.
Objective
Labs:
05/09/23 08:17
05/09/23 08:17
Labs
Hgb 11.7 g/dL (12.0-16.0) L 05/09/23 08:17
Hct 36.4 % (37.0-47.0) L 05/09/23 08:17
Plt Count 152 10^3/uL (130-400) 05/09/23 08:17
PT 19.9 Sec (11.4-14.6) H 05/05/23 12:07
INR 1.68 05/05/23 12:07
Sodium 129 mmol/L (135-145) L 05/09/23 08:17
Potassium 3.5 mmol/L (3.5-5.1) 05/09/23 08:17
BUN 24 mg/dl (7-17) H 05/09/23 08:17
Creatinine 0.5 mg/dL (0.6-1.0) L 05/09/23 08:17
Glucose 97 mg/dl (70-99) 05/09/23 08:17
Vital Signs and I&O:
Vital Signs
Temp Pulse Resp BP Pulse Ox
97.6 F 114 20 131/71 99
05/09/23 11:19 05/09/23 11:19 05/09/23 11:19 05/09/23 11:19 05/09/23 11:19
Vital Signs
Temp Pulse Resp BP Pulse Ox
97.6 F 114 20 131/71 99
05/09/23 11:19 05/09/23 11:19 05/09/23 11:19 05/09/23 11:19 05/09/23 11:19
Intake & Output
05/07/23 05/08/23 05/09/23 05/10/23
06:59 06:59 06:59 06:59
Intake Total 1020 / 1020 600 / 600 960 / 960
Output Total 300 / 300
Balance 720 / 720 600 / 600 960 / 960
Physical Exam
Physical Exam
GEN: No distress, awake, alert, oriented x 3
HEENT: supple, anicteric, mmm
LUNGS: b/l rales, no wheezing
CV: Reg, S1/S2, no murmur
EXT: No clubbing, cyanosis, or edema
NEURO: Gross non-focal
SKIN: Warm, dry no rash
--- NOTE | 2023-05-09 12:20 | CM ---
CM reviewed chart, patient transfer to IMU. Patient LTC at [facility]. CM will continue to follow for discharge planning needs.
Plan; return to [facility] LTC when medically stable.
[2023-05-09] MEDS: STERILE WATER FOR INJECTION 10 ML IV (12:36)
[2023-05-09] MEDS: MAXIPIME 1000 MG IV (12:36)
[2023-05-09 12:50] LABS: Procalcitonin < 0.05 ng/ml (0.0-0.25)
--- NOTE | 2023-05-09 15:35 | W.HF.CON ---
Heart Failure
- LV Function
Left ventricular function study result: LV Ejection fraction >40% (ECHO 03/01/23)
Ejection Fraction Percentage: 20-25
- ARNI
Patient already on ARNI: No
Heart Failure ARNI Contraindication: Hypotension, Patient Refusal
- ACEI/ARB
Patient already on ACEI/ARB: No
Heart Failure ACEI/ARB Contraindication: Hypotension
- Beta Eliud
Patient already on Evidence Based Beta Eliud: Yes
- Mineralocorticord Receptor Antagonist
Patient already on MRA: No
Heart Failure MRA Contraindication: Potentially Non-compliant, Hypotension
- SGLT-2 Inhibitor
Patient already on SGLT-2 Inhibitor: Yes
- Afib Anticoagulation
Patient already on Anticoagulation for Afib: Yes
- NYHA CHF Classification
NYHA CHF Classification Level: Class III - Symptoms w/ min exertion, interferes w/ nml daily activity
- ACC/AHA Stage
ACC/AHA Stage: Stage C: Symptomatic Heart Failure
--- NOTE | 2023-05-09 17:40 | PTCARENOTE ---
Pt TXFR to IMU Room [address] Fernández order. Report given to ELIZABETH Joiner.
[2023-05-09] MEDS: NEURONTIN PO ×2 (18:08→21:51)
--- NOTE | 2023-05-09 18:10 | PTCARENOTE ---
Received patient [id number] floor on stretcher. Patient very drowsy. She is arousable but quickly closes her eyes. Patient unable to take neurontin pills at this time. Coughing with oral intake. According to the patient and family appetite very
poor. Patient states that she did not eat anything today she has no appetite. Patient on 8l midflow oxygen sp02 95%,respirations up to 38, hr [address] with PVC's. BP 123/72. Family in room at bedside. [place] patient to room.
[2023-05-09 18:13] LABS: Glucose - Point of Care 158 mg/dl (70-99)
--- NOTE | 2023-05-09 19:45 | PTCARENOTE ---
Patient would like to meet with Hospice.
[2023-05-09 20:27] LABS: NT-proBNP 14000 pg/ml; Troponin I 0.096 ng/ml
[2023-05-09] MEDS: TIKOSYN PO (20:45)
[2023-05-09] MEDS: VIBRAMYCIN 50 MG PO (21:47)
[2023-05-09] MEDS: TIKOSYN 250 MCG PO (21:47)
[2023-05-09] MEDS: CRESTOR PO (21:51)
[2023-05-09] MEDS: SINEQUAN PO (21:52)
[2023-05-09 21:53] LABS: Glucose - Point of Care 130 mg/dl (70-99)
--- NOTE | 2023-05-09 21:56 | PTCARENOTE ---
Tikosyn given as ordered. Per cardiology pt had been on tikosyn before and stopped it on her own so there is no need to do loading protocol for qtc monitoring. Pt refused several meds. Will try again later.
[2023-05-10] VITALS: BP 98/53
[2023-05-10 02:00] VITALS: BP 101/53
[2023-05-10 04:00] VITALS: BP 96/55
[2023-05-10 04:06] VITALS: BMI 22.2
[2023-05-10] MEDS: SYNTHROID 50 MCG PO (05:09)
[2023-05-10 06:00] VITALS: BP 97/41
[2023-05-10 06:05] LABS: Blood Urea Nitrogen 30 mg/dl (7-17); Calcium 8.4 mg/dl (8.4-10.2); Carbon Dioxide 32 mmol/L (22-30); Chloride 91 mmol/L (98-107); Estimated Creatinine Clearance 57 ml/min; Glucose 124 mg/dl (70-99); Potassium 2.8 mmol/L (3.5-5.1); Sodium 133 mmol/L (135-145); eGFR > 60.00
[2023-05-10] MEDS: SYMBICORT 160/4.5 MCG INHALER 2 PUFF INH (07:18)
--- NOTE | 2023-05-10 07:37 | W.PN.HOSP.TC ---
Today's Communication/Plan
-
Transition to comfort care and awaiting hospice care team to arrange home hospice
Will replete potassium for today only
Will discontinue antibiotic course
Placed on Tikosyn overnight
Assessment / Plan
Assessment / Plan
Physical Exam
General: Well Developed, Well Nourished and No Apparent Distress/improved dyspnea from yesterday
HEENT: Normocephalic, Moist mucous membranes and Atraumatic
Respiratory: Rales and Crackles - IMPROVED. NOW COUGHING.
Cardiac: S1/S2 and Regular Rhythm
GI: Soft, Non Tender, Non Distended and Normal Bowel Sounds
Musculoskeletal: No Cyanosis and No Edema
Skin: Warm. Dry.
Neuro: AAO x 3 and Nonfocal/grossly intact
Psych: Calm
Assessment/Plan
# Acute on chronic hypoxic respiratory failure likely from acute on chronic HFrEF exacerbation
#HFrEF
Developed acute respiratory distress this morning and seems to be in pulmonary edema/
-
-Was non-compliant with PO fluid restriction ENROUTE CONTROLLER which likely played a major role in CHF exacerbation
-Patient initially this hospitalization needing 4 L of oxygen
-Patient uses 2 L at home --> now back to baseline
-Chest x-ray showed Cardiomegaly. Increased pulmonary vascularity suggesting CHF or acute cardiogenic pulmonary edema.
-BNP was significantly elevated
-Status post IV Lasix 40 twice a day--> now switched back to Lasix 40 mg daily (patient's home dose)/on May 07/got 1 dose of IV Lasix yesterday
-Continue carvedilol.
-Strict I's and O's
-Check daily weights
-Wean oxygen as tolerated
-Fluid restriction/patient now wants to be transition to comfort care and hospice
-Cardiology consulted, recommendations appreciated: hypotension in the past had limited adding goal directed medical therapy; will consider adding low-dose lisinopril if blood pressure tolerates
-COVID and flu negative
-ECHO /2023) with EF of 20-25%
-Per cardiology, patient has not tolerated Entresto, Aldactone, or other afterload agents because of hypotension.
#Fever 100.4 F on May 08, 2023 morning -- associated with coughin
-Check for Flu and COVID again
-Check repeat CXR/now notes a left basilar opacity consistent with possible healthcare acquired pneumonia
-Will place on cefepime/doxycycline p.o./check MRSA screen
-Blood cultures thus far negative
# Hyponatremia likely hypervolemic
-Fluid restriction
-Diuretics
-BMP in a.m.
#Hypokalemia
-Replaced
-Monitor BMP
# History of COPD/asthma
-Not in acute exacerbation
-Albuterol as needed for short of breath and wheezing
-Symbicort continued
-Dexamethasone continued
# Hypothyroidism
-Levothyroxine
#Paroxysmal AF/developed rapid ventricular response May 08
-Reverted back to sinus rhythm after being placed on Tikosyn per cardiology
-EKG with sinus rhythm with PVCs
- cont. Eliquis
- on carvedilol in setting of cardiomyopathy.
#Essential Hypertension
- Continue Coreg
#Hyperlipidemia
- cont. Crestor
#Asymptomatic Hypoglycemia - RESOLVED
#DMT2
- Continue to hold Glipizide due to hypoglycemia
- Jardiance
- Hold Insulin Sliding Scale due to hypoglycemia
#Diabetic Neuropathy
- cont. gabapentin
#HX ILDz with chronic hypoxic respiratory insufficiency at bedtime
- cont. Symbicort
- Home O2 uses 2 L of oxygen at bedtime
#Anxiety/Depression/Insomnia
- cont Zoloft
- cont doxepin
#GERD
-Continue Protonix
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
-Prior DARRYL -without any significant stenosis per prior record
-Continue oxy and morphine
#DVT prophylaxis
-eliquis
#CODE status
-DNR
She has now elected to pursue hospice care with her desires to go back home and be placed on hospice she has been on Perative care prior to presentation daughter is also aware of this decision. Awaiting hospice care team to see to make arrangements
will discontinue all medications not contributing to her comfort
Anticipated Discharge: Within 24 hours
Subjective/Interval History
-
Date of Service: May 10, 2023
Patient overnight has resigned to the fact that she wants to be placed on hospice care apparently had been under palliative care as outpatient and given recent events last 24 hours realizes that she just wants to be made comfortable. Gun Sealing Machine Operator
overnight placed a consult for hospice care team to see and she is awaiting them anxiously.
Objective Data
-
Labs:
Laboratory Results
05/10/23
05:00
Sodium 133 L
Potassium 2.8 L
Chloride 91 L
Carbon Dioxide 32 H
BUN 30 H
Creatinine 0.6
Glucose 124 H
Calcium 8.4
Vital Signs:
Vital Signs
Temp Pulse Resp BP Pulse Ox
98.3 F 61 20 97/41 97
05/10/23 03:15 05/10/23 07:21 05/10/23 07:21 05/10/23 06:00 05/10/23 07:21
I&O
05/09/23 05/10/23 05/11/23
06:59 06:59 06:59
Intake Total 960 / 960
Output Total 500 / 500
Balance 960 / 960 -500 / -500
Review of Systems
-
History Source: Patient
All other systems: Reviewed and negative
EENT: Reports No Symptoms Reported
Respiratory: Reports Trouble Breathing
Musculoskeletal: Reports Joint Pain, Joint Swelling and Arthralgias (rt foot )
Psych: Reports Sad
Physical Exam
-
General: Appears Chronically Ill
HEENT: Normocephalic
Respiratory: Rales and Rhonchi
Cardiac: Regular Rhythm and S1/S2 (Back back in sinus rhythm overnight after being placed on Tikosyn)
GI: Soft and Nontender
Neuro: Awake, Alert, Oriented and AO x 3
Psych: Calm
Data Reviewed
-
Total Time Spent with Patient (in minutes): 56
Labs: Labs Reviewed by me
[2023-05-10 08:00] VITALS: BP 114/43
[2023-05-10 08:11] LABS: Glucose - Point of Care 80 mg/dl (70-99)
[2023-05-10] MEDS: KLOR-CON 20 MEQ PO (08:57)
[2023-05-10] MEDS: NEURONTIN 800 MG PO (08:58)
[2023-05-10] MEDS: ELIQUIS 5 MG PO (08:58)
[2023-05-10] MEDS: MS CONTIN (EXTENDED RELEASE) 15 MG PO (08:58)
[2023-05-10] MEDS: FLORASTOR 250 MG PO (08:58)
[2023-05-10] MEDS: LASIX 40 MG PO (08:58)
[2023-05-10] MEDS: TIKOSYN 250 MCG PO (08:58)
[2023-05-10] MEDS: COREG 6.25 MG PO (08:58)
[2023-05-10] MEDS: ZOLOFT 50 MG PO (08:58)
[2023-05-10] MEDS: JARDIANCE 10 MG PO (08:59)
--- NOTE | 2023-05-10 09:04 | PTCARENOTE ---
Pt rec'd from shift supervisor melting, orders for comfort measures rec'd. Ok to stop bedside glucose monitoring per Dr. Fernández. Pt resting quietly at this time. 02 weaned to 4L per RT Gladis. No complaints verbalized, will monitor.
--- NOTE | 2023-05-10 09:36 | CM ---
Addendum entered by Kiana Boo RN 05/10/23 15:48:
Notified by nurse Darby and Dr Fernández that patient had passed.
Spoke with patient's daughter Daja; she is aware patient had , and she had just arrived at the SNF. CM expressed her sympathy at her mother's passing. Informed Daja will let SNF Admissions know.
Spoke with Kaitlynn Evans; informed her that patient had and daughter was notified.
Addendum entered by Kiana Boo RN 05/10/23 10:35:
Spoke with Jasmine, [facility]; the patient is on an PR bed hold. They are able to accept her back today with Hospice. The for report [phone], fax [phone].
Met with patient and daughter Daja; patient awake, alert, conversant and eating breakfast. Both agree to patient returning to [facility] today with Hospice. IMM completed.
OOH DNR form on chart and Dr Fernández aware.
Plan [facility] today with Hospice by ambulance.
Original Note:
Patient from [facility] on comfort care.
CM Consult: Hospice
Spoke with patient's daughter Daja;
explained hospice philosophy and benefits.
Daughter agrees to hospice and has no hospice agency preference- informed her Hospice nurse will contact her.
Daughter says she will be coming in today to be with her mother.
She has 2 brothers who have not had much contact wth the patient.
Daja volunteers that her relationship with her mother is distant as her mother abandoned her and her siblings when they were young.
Offered pastoral care for airplane dispatch clerk for patient or family and daughter declined.
Daja agrees with her mother returning to [facility]
Message to [facility] with referral. Daughter in agreement with hospice we could admit today back to [place] today.
Spoke with Kaitlynn Evans; she will check and see if patient is able to return today with hospice.
Plan [facility] SNF with Hospice.
--- NOTE | 2023-05-10 09:50 | HOSPNOTE ---
Spoke with daughter Daja and she is in agreement with hospice services. The plan would be for patient to return to [place] and then will be signed onto hospice services with once patient returns. OOH DNR will be needed on chart. Equipment was
ordered and will be delivered today. Case management aware of plan.
--- NOTE | 2023-05-10 10:25 | PTCARENOTE ---
Pt for 13:00 pickup to return to [facility]. Report called to Jocy JOHNSON at this time. Pt 's daughter at bedside, no needs at this time.
--- NOTE | 2023-05-10 11:29 | W.DS.TRANS ---
DC Summary - Boiling Off Winder
-
Discharge Instructions:
Sleep Apnea Risk Low
Discharge Diagnosis/Procedures Acute on chronic HFrEF/hypotension
Paroxysmal atrial fibrillation with rapid
ventricular response
Hospital-acquired pneumonia
Hypoxic respiratory failure
Interstitial lung disease
COPD
Now on comfort care and transition to outpatient
hospice
Diet Regular
Activity As tolerated
Driving Restrictions No driving
Other Services Hospice
Instructions: *[facility] Heart Failure Instructions
Stand-Alone Forms:
Changes to Home Medications: No
Discharge Medications:
DC Medications w/original date entered in [place] [facility]
budesonide-formoterol HFA 160 mcg-4.5 mcg/actuation aerosol inhaler (Symbicort) 2 puff inhalation R BID Lung/breathing issues 01/19/22
gabapentin 800 mg tablet 800 mg PO TID Neurological Condition 11/23/22
oxycodone 15 mg tablet 15 mg PO Q6HPRN PRN MODERATE PAIN 02/28/23
albuterol sulfate 2.5 mg/3 mL (0.083 %) solution for nebulization 2.5 mg inhalation R Q6HPRN PRN sob 05/05/23
bisacodyl 10 mg rectal suppository (Dulcolax (bisacodyl)) 10 mg HI [id number] PRN if no bm aftr mom 05/05/23
diphenhydramine-zinc acetate 2 %-0.1 % topical cream 1 applic topical BIDPRN PRN pruritus 05/05/23
doxepin 25 mg capsule 25 mg PO HS Mental Health/Anxiety 05/05/23
levothyroxine 50 mcg tablet (Synthroid) 50 mcg PO DAILY Thyroid 05/05/23
lidocaine 4 % topical patch 1 patch topical DAILY PRN area of pain 05/05/23
morphine 15 mg tablet,extended release 15 mg PO Q12H Pain 05/05/23
hyoscyamine sulfate 0.125 mg/mL oral drops 0.125 mg sublingual Q4HPRN PRN excessive secretions #15 mL 05/10/23
Home Medication Changes
Pending Results: No
--- NOTE | 2023-05-10 11:48 | PTCARENOTE ---
Pt noted to have multiple episodes of sinus tachycardia w rates 160's-170's/sinus arrhythmia on monitor. This nurse performed assessment of Pt- Pt was noted to have removed O2 and tubing was found on floor. At the same time of mold clamper, "Stefany"Pradeep visited the Pt. Pt was was noted to be drowsy and SOB. Lungs sounds diminished, coarse with crackles. O2 placed back on Pt and bumped from 2L to 6L temporarily then to 4L until SpO2 normalized at 92%. Pt encouraged to perform deep
breathing exercises. 1 time STAT doses of Lopressor and Lasix ordered by Dr. Fernández given immediately. Cardiology consult ordered. HR dropped back down into 90's s/p Lopressor dose. Per Dr. Fernández order- initialization of TXFR to IMU started.
--- NOTE | 2023-05-10 12:01 | W.PN.CARDCBS ---
Addendum entered and electronically signed by Martin Palma MD 05/10/23 12:35:
I saw and examined the patient.
The Compensation Specialist's note was reviewed and I agree with the note.
Comment:
GEN: No distress, awake, Ox3
HEENT: supple, anicteric, mmm
LUNGS: scatt rhonchi
CV: Reg, S1/S2, 02/12 syst LSB, S3+
ABD: soft, BS+, NT/ND
EXT: trace edema
NEURO: Gross non-focal
SKIN: No rash
Plan:
Plan is to transition to hospice. I agree her long-term prognosis is poor.
Would continue to use Lasix as needed for comfort.
Original Note:
Today's Communication / Plan
-
for DC to [facility] on hospice today
K repleted
PRN lasix
Impression / Plan
-
Primary Information Technology Intern: Dr. Cody
Impression:
Presentation with chest tightness, SOB
Acute on chronic HFrEF
CM EF 20-25% by echo 02/2023
Paroxysmal atrial fibrillation / Paroxysmal atrial tachycardia
Previously managed with Tikosyn, but patient stopped taking on her own in past for unclear reasons
Chronic Eliquis 5 mg BID OAC
History of PE and DVT 07/31/21
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
Mild
h/o brief NSVT by Bardy monitor 06/2022
Interstitial lung disease/asthma on chronic supplemental O2
Sjogren's syndrome
Hypertension
Hyperlipidemia
Type 2 diabetes
Hypothyroidism
History of falls
Chronic back pain/chronic narcotic dependence
History of bowel resection for diverticulitis
Hyponatremia, mild
ECHO 06/25/22: TDS, EF 55%, mild to moderate concentric LVH prominent subaortic septum, stage II diastolic dysfunction, dilated left atrium, mitral sclerosis with dense posterior MAC, mild to moderate MR, mild with peak/mean gradients 21/12 mmHg,
mild AR, mild TR, PAP 35 to 40 mmHg
MUSA 07/15/22: EF 45-50%, mild conc LVH, mod MR, mild MS, mild with mild to mod AR
Echo 12/01/22: EF 20-25% with severe global hypokinesis, stage II diastolic dysfunction, mod MR, mild and mild to mod AR, mild TR with PAP 35-40 mmHg
Echo 03/01/2023: EF 20 to 25%, global hypokinesis
Plan:
-plans for return to [facility] today on hospice noted
-potassium repleted today
-would recommend lasix 40mg PRN for comfort moving forward
-coreg, tikosyn, and eliquis have been discontinued per primary service
-will notify primary buttermaker continuous churn
HPI: Patient is an 83-year-old female with past medical history of chronic heart failure with reduced EF, EF 20 to 25% by echo 02/2023, paroxysmal atrial fibrillation and atrial tachycardia, history of PE and DVT, interstitial lung disease and asthma
who moved from home to [facility] approximately 1 month ago on palliative care. She states that yesterday she began with chest tightness and shortness of breath which worsened throughout the evening and this morning. She denies
radiation of pain from the chest, and denies nausea/vomiting or diaphoresis. She states she was on 2 L of supplemental oxygen this morning, however felt she needed 3 L. She reports she could not get help with this for some time. She states the
pain and shortness of breath lasted approximately 1-1/2 hours before being relieved with an increase in oxygen (apparently was hypoxic with improvement in increase to 4L NC). She reports orthopnea, lower extremity edema, dry cough, and 4 pound
weight gain over the last several days. She states she has been drinking a lot over the last couple days as she has had significant thirst. proBNP 5500. Chest x-ray with evidence of pulmonary edema suggestive of congestive heart failure
exacerbation. Cardiology consulted for evaluation
Progress Note - Information Technology Intern
Subjective
Date of Service: May 10, 2023
for DC to hospice today
Objective
Labs:
05/09/23 08:17
05/10/23 05:00
Labs
Hgb 11.7 g/dL (12.0-16.0) L 05/09/23 08:17
Hct 36.4 % (37.0-47.0) L 05/09/23 08:17
Plt Count 152 10^3/uL (130-400) 05/09/23 08:17
PT 19.9 Sec (11.4-14.6) H 05/05/23 12:07
INR 1.68 05/05/23 12:07
Sodium 133 mmol/L (135-145) L 05/10/23 05:00
Potassium 2.8 mmol/L (3.5-5.1) L 05/10/23 05:00
BUN 30 mg/dl (7-17) H 05/10/23 05:00
Creatinine 0.6 mg/dL (0.6-1.0) 05/10/23 05:00
Glucose 124 mg/dl (70-99) H 05/10/23 05:00
Troponins
05/09/23
19:52
Troponin I 0.096 H*
Vital Signs and I&O:
Vital Signs
Temp Pulse Resp BP Pulse Ox
98.3 F 61 16 114/43 96
05/10/23 03:15 05/10/23 10:00 05/10/23 10:00 05/10/23 08:00 05/10/23 10:28
Vital Signs
Temp Pulse Resp BP Pulse Ox
98.3 F 61 16 114/43 96
05/10/23 03:15 05/10/23 10:00 05/10/23 10:00 05/10/23 08:00 05/10/23 10:28
Intake & Output
05/08/23 05/09/23 05/10/23 05/11/23
07:59 07:59 07:59 07:59
Intake Total 600 / 600 960 / 960
Output Total 500 / 500
Balance 600 / 600 960 / 960 -500 / -500
--- NOTE | 2023-05-10 13:31 | W.PN.DEATH ---
Pronouncement of
-
Called to see patient to pronounce.
No spontaneous heart tones or respirations noted.
Patient not responsive to verbal stimuli.
Patient is pronounced .
Time of : 13:20
Date of : 05/10/23
Cause of : Acute hypoxic respiratory failure
Family Notified: Yes
--- NOTE | 2023-05-10 13:37 | W.DCSUMMARY ---
Discharge Summary
Discharge Data
Date of Admission: 05/05/23
Date of Discharge: 05/10/23
-
Pending Results: No
Hospital Course
Patient is an 83-year-old female with past medical history of chronic heart failure with reduced EF, EF 20 to 25% by echo 02/2023, paroxysmal atrial fibrillation and atrial tachycardia, history of PE and DVT, interstitial lung disease and asthma who
moved from home to [facility] approximately 1 month ago on palliative care. She states that yesterday she began with chest tightness and shortness of breath which worsened throughout the evening and this morning. She denies
radiation of pain from the chest, and denies nausea/vomiting or diaphoresis. She states she was on 2 L of supplemental oxygen this morning, however felt she needed 3 L. She reports she could not get help with this for some time. She states the
pain and shortness of breath lasted approximately 1-1/2 hours before being relieved with an increase in oxygen (apparently was hypoxic with improvement in increase to 4L NC). She reports orthopnea, lower extremity edema, dry cough, and 4 pound
weight gain over the last several days. She states she has been drinking a lot over the last couple days as she has had significant thirst. proBNP 5500. Chest x-ray with evidence of pulmonary edema suggestive of congestive heart failure
exacerbation.
She was admitted to telemetry and treated for acute on chronic heart failure with reduced ejection fraction more recently echocardiography 8 noting significant reduction in EF from previous to a 25% ejection fraction in the setting of paroxysmal
episodes of atrial tachycardia and atrial fibrillation
Patient was initiated on IV diuresis seen by the cardiology service. No further need to repeat echocardiography in the setting of February.
She subsequently had episode of afebrile course of respiratory congestion was found to have a apparent hospital-acquired pneumonia she continued to require hypoxic support with oxygen (limits of what she had had in the past to 2 L at home with the
understanding after discussion with family members at the patient already been on palliative care and outpatient and the patient again developed episodes of respiratory congestion and return to paroxysms of rapid ventricular response atrial
fibrillation cardiology was reconsulted and felt that the patient may qualify at this time for either return to Tikosyn which she met noncompliant with in the past and/or over the addition of amiodarone she was given a single course of Tikosyn the
night of 08 May and converted back to sinus rhythm however at that time given her wishes to not pursue any further interventions the patient requested a change in her status to comfort care and that was undertaken on the morning of 09 May this was
discussed with the patient's daughter and in agreement and we made arrangements for a discharge plan to [facility] under hospice prior to that the patient was noted to have no vital signs approximating 1:15 PM and patient herself stated she did
not want to at an outside facility and her which is mostly came show as the patient was declared by myself at 1:20 PM hours of 09 May.
I informed the patient's daughter via phone who expressed that she did not want.to return she had been there this morning but was made aware with condolences given.
Online district difficult will be filled out
Discharge Plan
-
Patient Disposition: Fpc/SNF
Discharge Diagnosis/Procedures: Acute on chronic HFrEF/hypotension
Paroxysmal atrial fibrillation with rapid ventricular response
Hospital-acquired pneumonia
Hypoxic respiratory failure
Interstitial lung disease
COPD
Now on comfort care and transition to outpatient hospice
Diet: Regular
Activity: As tolerated
Driving Restrictions: No driving
Other Services: Hospice
Instructions: *[facility] Heart Failure Instructions
Referrals:
Stephanie Aceves CRNP [Specified Professional Personl] - 05/23/23 11:00 am (You have a follow up visit with Dr. Cody's GRINDING WHEEL INSPECTOR, Stephanie, at the [facility] office. Please call with questions. )
Marcie Kimble DO [Family Provider] -
Prescriptions:
New
hyoscyamine sulfate 0.125 mg/mL Drops
0.125 mg sublingual Q4HPRN PRN (Reason: excessive secretions) Qty: 15 0RF
Continued
budesonide-formoterol [Symbicort] 160-4.5 mcg/actuation HFA aerosol inhaler
2 puff INHALATION R BID
gabapentin 800 mg tablet
800 mg PO TID
oxycodone 15 mg tablet
15 mg PO Q6HPRN PRN (Reason: MODERATE PAIN)
doxepin 25 mg Capsule
25 mg PO HS
diphenhydramine-zinc acetate 2-0.1 % Cream
1 applic TOPICAL BIDPRN PRN (Reason: pruritus)
levothyroxine [Synthroid] 50 mcg Tablet
50 mcg PO DAILY
lidocaine 4 % Adhesive Patch,Medicated
1 patch TOPICAL DAILY PRN (Reason: area of pain)
albuterol sulfate 2.5 mg /3 mL (0.083 %) Solution For Nebulization
2.5 mg INHALATION R Q6HPRN PRN (Reason: sob)
bisacodyl [Dulcolax (bisacodyl)] 10 mg Suppository
10 mg MS [id number] PRN (Reason: if no bm aftr mom)
morphine 15 mg Tablet Extended Release
15 mg PO Q12H
Discontinued
glipizide 5 MG tablet extended release 24hr
5 mg PO BID
sertraline 50 mg Tablet
50 mg PO DAILY
rosuvastatin 10 mg Tablet
10 mg PO HS
Eliquis 5 mg tablet
5 mg PO BID
dicyclomine 10 mg capsule
10 mg PO TIDPRN PRN (Reason: bowel spasms)
furosemide 40 mg Tablet
40 mg PO DAILY 30 Days Qty: 30 0RF
carvedilol 3.125 mg tablet
6.25 mg PO DAILY
loperamide 1 mg/7.5 mL Liquid
2 mg PO DAILYPRN PRN (Reason: dairrhea)
cholecalciferol (vitamin D3) [Vitamin D3] 25 mcg (1,000 unit) Tablet
25 mcg PO DAILY
acetaminophen [Tylenol] 325 mg Tablet
650 mg PO Q4HPRN PRN (Reason: fever)
cetirizine [Zyrtec] 10 mg Tablet
10 mg PO DAILY PRN (Reason: allergies)
acetaminophen [Tylenol Extra Strength] 500 mg Tablet
500 mg PO TIDPRN PRN (Reason: mild pain)
magnesium hydroxide [Milk of Magnesia] 400 mg/5 mL Suspension
2,400 mg PO HSPRN PRN (Reason: constipation)
dexamethasone 2 mg Tablet
2 mg PO DAILY
Patient Comments:
for 5 days started on 05/03/23
Saccharomyces boulardii [Florastor] 250 mg Capsule
250 mg PO DAILY
Discharge Orders:
Discharge Patient (As Directed); Ordered 05/10/23
Ordered By: Jason Fernández
Discharge Date and Time
Print Language: SPANISH
--- NOTE | 2023-05-10 13:37 | PTCARENOTE ---
Transport co arrived to flower picker patient at 13:15, this RN went into room to assist pt to amb stretcher and found her unresponsive, no heart tones auscultated. Attending Dr. Fernández called to bedside, pronounced patient at 13:20. Will call [facility] and
[facility] to update. Dr. Fernández notified family.
== END 2023-05-10 13:20 | disposition expired | DRG 291 ==
LOC: IMU 15:37
PROVIDERS: Emergency Medicine; Internal Medicine Cardiovascular Disease; Registered Nurse; ADMITTING PHYSICIAN Hospitalist; ATTENDING PHYSICIAN Internal Medicine; CONSULT PHYSICIAN Internal Medicine Cardiovascular Disease; EMERGENCY PHYSICIAN Emergency Medicine; FAMILY PHYSICIAN Family Medicine
DX: I11.0 Hypertensive heart disease with heart failure (principal); I50.23 Acute on chronic systolic (congestive) heart failure; J96.21 Acute and chronic respiratory failure with hypoxia; J44.0 Chronic obstructive pulmonary disease with (acute) lower respiratory infection; J84.9 Interstitial pulmonary disease, unspecified; E87.1 Hypo-osmolality and hyponatremia; F11.20 Opioid dependence, uncomplicated; I47.19 Other supraventricular tachycardia; Z51.5 Encounter for palliative care; I48.0 Paroxysmal atrial fibrillation; E78.00 Pure hypercholesterolemia, unspecified; G89.29 Other chronic pain; K21.9 Gastro-esophageal reflux disease without esophagitis; M19.90 Unspecified osteoarthritis, unspecified site; I49.3 Ventricular premature depolarization; G47.00 Insomnia, unspecified; F32.A Depression, unspecified; I25.10 Atherosclerotic heart disease of native coronary artery without angina pectoris; E03.9 Hypothyroidism, unspecified; I42.9 Cardiomyopathy, unspecified; I95.9 Hypotension, unspecified; E87.6 Hypokalemia; M54.9 Dorsalgia, unspecified; F41.9 Anxiety disorder, unspecified; Z66 Do not resuscitate; E11.42 Type 2 diabetes mellitus with diabetic polyneuropathy; M25.571 Pain in right ankle and joints of right foot; M35.00 Sjogren syndrome, unspecified; Z90.710 Acquired absence of both cervix and uterus; Z96.653 Presence of artificial knee joint, bilateral; Z11.52 Encounter for screening for COVID-19; Z79.84 Long term (current) use of oral hypoglycemic drugs; Z79.01 Long term (current) use of anticoagulants; Z79.51 Long term (current) use of inhaled steroids; Z96.612 Presence of left artificial shoulder joint; Z87.891 Personal history of nicotine dependence; Z98.1 Arthrodesis status; Z88.8 Allergy status to other drugs, medicaments and biological substances; Z79.890 Hormone replacement therapy; Z91.199 Patient's noncompliance with other medical treatment and regimen due to unspecified reason; Z86.711 Personal history of pulmonary embolism; Z86.718 Personal history of other venous thrombosis and embolism; Z91.81 History of falling; Z90.49 Acquired absence of other specified parts of digestive tract; Z87.19 Personal history of other diseases of the digestive system
CPT/HCPCS: 36415; 71045; 71046; 80048; 80053; 80061; 82248; 82962; 83036; 83735; 83880; 84145; 84443; 84484; 85025; 85027; 85610; 87040; 87070; 87502; 87811; 93005; 94640; 96374; 97163; 99285